=== PATIENT | male | born 1945 | race Caucasian/White ===

== ENCOUNTER 2016-12-14 11:52 | Day surgery (SDC) | payer OTHER ==
--- NOTE | 2016-12-08 15:36 | MH ---
cc: OMAR BLOCK M.D. DATE OF ADMISSION: 12/14/2016 HISTORY OF PRESENT ILLNESS The patient is a 71-year-old white male with a history of sleep apnea, chronic atrial fibrillation, severe dilated cardiomyopathy, coronary artery disease who is now admitted for AICD generator replacement. His AICD battery was found to be nearing end-of-life on a routine check. Clinically he has been doing fairly well. He has had no change in chronic moderate to severe dyspnea with minimal exertion. He denies chest pain, dizziness, syncope, near-syncope, pedal edema, paroxysmal nocturnal dyspnea. Occasionally he experiences fluttering palpitations. PAST MEDICAL HISTORY: 1. Sleep apnea 2. Chronic atrial fibrillation. 3. History of biventricular pacemaker implant with subsequent upgrade of the device to a dual-chamber AICD biventricular system 06/10/2009. 4. Moderate to severe dilated cardiomyopathy. His ejection fraction was most recently measured at 30-35% on echo 12/08/2016. 5. Coronary artery disease status post bypass surgery 04/21/2005. His last heart catheterization was November of 2010 showing moderate to severe three-vessel [place] coronary artery disease, patent bypass grafts including a left internal mammary artery to the LAD, vein graft to the second obtuse marginal, vein graft to the ramus intermedius. He also has a history of bare-metal stenting of the mid right coronary November 2006. 6. Hyperlipidemia. 7. Hypertension. 8. History of thyroid cancer status post thyroidectomy in 1983. CARDIAC MEDICATIONS AT HOME: 1. Aspirin 325 milligrams daily. 2. Avapro 150 milligrams daily. 3. Furosemide 40 milligrams twice a day. 4. Metoprolol succinate 25 milligrams daily. 5. Potassium chloride 20 milliequivalents daily. 6. Simvastatin 40 milligrams at bedtime. 7. Warfarin 6 milligrams daily. ALLERGIES: 1. TALWIN. 2. VALIUM. 3. CODEINE. FAMILY HISTORY: Family history noncontributory. SOCIAL HISTORY: The patient is a former smoker. There is no history of alcohol abuse. REVIEW OF SYSTEMS: Review of systems as in the history of present illness otherwise negative or noncontributory. PHYSICAL EXAMINATION: GENERAL: On exam his blood pressure IS 126/68 with a pulse of 60, respirations 20. GENERAL: In general, he is a well-developed, well-nourished white male in no acute distress. HEAD, EYES, EARS, NOSE, THROAT: On HEENT examination jugular venous pressure is normal. Carotid pulses are 2+ bilaterally and without bruits. CHEST: Examination of the chest reveals clear lung turner. CARDIAC: On cardiac examination, he has a regular rhythm and rate without S3, S4 or murmur. ABDOMEN: On abdominal examination he has a soft, nontender abdomen. Bowel sounds are present. There is no definite hepatosplenomegaly. EXTREMITIES: Examination of extremities reveals no clubbing, cyanosis or edema. IMPRESSION: AICD battery nearing end-of-life in a 71-year-old white male with a history of chronic atrial fibrillation, moderate to severe dilated cardiomyopathy, coronary artery disease, hyperlipidemia, hypertension. The patient has been recommended AICD generator replacement. He has also been recommended AICD defibrillation threshold testing. The nature of these procedures and potential risks have been outlined. His most recent ejection fraction was estimated at 30% to 35% on an echo 12/08/2016. The patient remains [place] [employer] functional class III chronically. PLAN: AICD generator replacement and AICD defibrillation threshold testing on 12/14/2016. ADDENDUM: The patient has expressed desire to implant only a biventricular pacemaker, and not and ICD system. His device will be changed to a biventricular pacemaker. MD SARAH Badillo/YOJANA /2:44 PM /3:33 PM [facility]
[~2016-12-14] VITALS: Ht 175.3 cm; Wt 136.0 kg
[~2016-12-14 11:52] MED LIST: ALBU6.7H INH; ASPI325T PO; DOFE250 PO; FURO1TAB93 PO; HYDR10TA16 PO; IRBE150T49 PO; KLOR20TA6 PO; LEVO.125 PO; OMEP20TA PO; SPAC1MIS6; SUCR1S PO; TOPR25TA2 PO; VITA100018 PO; WARF6 PO; ZOCO40TA PO
[2016-12-14 12:33] LABS: AUTOMATED NEUTROPHIL # 3.4 TH/MM3 (1.8-7.7); BASOPHIL % 0.7 % (0.0-2.0); EOSINOPHIL # 0.9 TH/MM3 (0-0.4); HEMATOCRIT 38.7 % (39.0-51.0); HEMO FLAGS DIFF FINAL; LYMPH % 23.8 % (9.0-44.0); LYMPHOCYTE # 1.5 TH/MM3 (1.0-4.8); MEAN CELL VOLUME 91.1 FL (80.0-100.0); MEAN CORPUSCULAR HEMOGLOBIN 30.4 PG (27.0-34.0); MEAN CORPUSCULAR HGB CONC 33.4 % (32.0-36.0); MONO % 8.7 % (0.0-8.0); NEUT % 52.8 % (16.0-70.0); PLATELET COUNT 177 TH/MM3 (150-450); RED BLOOD COUNT 4.25 MIL/MM3 (4.50-5.90); RED CELL DISTRIBUTION WIDTH 17.5 % (11.6-17.2); WHITE BLOOD COUNT 6.5 TH/MM3 (4.0-11.0)
[2016-12-14 12:41] LABS: APTT (PATIENT) 37.6 SEC (24.3-30.1); INTERNATIONAL NORMALIZED RATIO 1.5 RATIO; PROTHROMBIN TIME - PATIENT 16.5 SEC (9.8-11.6)
[2016-12-14 12:42] VITALS: BP 138/87; PULSE 88; RESP 17; TEMP 97.7; O2SAT 95
[2016-12-14] MEDS ORDERED: VANCOMYCIN 1000 MG/NS 250 ML IV SCH ×2 (12:45)
[2016-12-14] MEDS ORDERED: CHLORHEXIDINE GLUCONATE 2 % 1 PACK (2 CLOTHS) TOPICAL PRN (12:45)
[2016-12-14] MEDS ORDERED: INSULIN HUMAN REGULAR 1,000 UNITS/10 ML VIAL SQ PRN (12:45)
[2016-12-14] MEDS ORDERED: NS 1000 ML IV SCH (12:45)
[2016-12-14] MEDS ORDERED: SODIUM CHLORID 0.9% 500 ML IV PRN (12:45)
[2016-12-14] MEDS ORDERED: Hold AM Insulin & AM Hypoglycemic medications in diabetic patients PRN (12:45)
[2016-12-14] MEDS ORDERED: MUPIROCIN 2% OINT 1 APPLIC/GM SYR NASAL SCH (12:45)
[2016-12-14] MEDS ORDERED: LACTATED RINGER'S 1000 ML IV PRN (12:45)
[2016-12-14] MEDS ORDERED: ceFAZolin 2 GM PREMIX 50 ML IV SCH (12:45)
[2016-12-14] MEDS ORDERED: METOPROLOL TARTRATE 25 MG TAB PO PRN (12:45)
[2016-12-14] MEDS ORDERED: NO Heparin, Lovenox, Coumadin at least 12 hours prior to procedure. PRN (12:45)
[2016-12-14] MEDS ORDERED: CHLORHEXIDINE GLUCONATE 2 % 1 PACK (2 CLOTHS) TOPICAL SCH (12:45)
[2016-12-14 12:51] LABS: BICARBONATE 28.9 MEQ/L (21.0-32.0); POTASSIUM 3.5 MEQ/L (3.5-5.1)
[2016-12-14] MEDS ORDERED: MIDAZOLAM HCL 2 MG/2 ML VIAL ONE ×2 (13:16→15:02)
[2016-12-14] MEDS ORDERED: WARF-60 PO (13:32)
[2016-12-14] MEDS ORDERED: METO25TA6 PO (13:32)
[2016-12-14] MEDS ORDERED: FURO40TA PO (13:32)
[2016-12-14] MEDS ORDERED: LEVO125T4 PO (13:32)
[2016-12-14] MEDS ORDERED: IRBE150T49 PO (13:32)
[2016-12-14] MEDS ORDERED: ZOCO40TA PO (13:32)
[2016-12-14] MEDS ORDERED: POTA-163 PO (13:32)
[2016-12-14] MEDS ORDERED: HYDR-3516 PO (13:32)
[2016-12-14] MEDS ORDERED: OXYC30TA PO (13:32)
[2016-12-14] MEDS ORDERED: LIDOCAINE HCL 2% 50 ML VIAL ONE (14:11)
[2016-12-14] MEDS ORDERED: MIDAZOLAM HCL 2 MG/2 ML VIAL IV PUSH ONE (14:15)
--- NOTE | 2016-12-14 14:47 | CATHPROC ---
GT Channel HIS Report Study Information Study Number Admission Scheduled Start Study Start [id number] Dec 14 2016 11:52AM 12/14/2016 Dec 14 2016 1:11PM [facility] Cardiac Pacer/ICD Admit Source Facility Department Other [facility] - Liability Claims Manager Physician and Clinical Staff Initial Serjio Alfredo Blow Up Operator Ciro Kumar,RT(R) Other Anesthesia, KAPOK MACHINE OPERATOR Recorder Elena Nuñez,LAURIE Scrub Sapna Forte,RT(R) TECH2 Equipment Time Drilling And Production Superintendent Description Size Mfg Part Number Used/Scraped [address] 14:27 [id number] BLAIR, HEMOSTAT 1 GRAM Used *[id number]-1103 13:56 [employer] SUTURE, STRIP PLUS 1/2" * Used *[id number] 13:56 MEDLINE PACER ADHESIVE, MASTISOL 2/3CC 2/3CC 0523-48 Used 13:56 MEDLINE PACER GARZA, LIMB * 2530 *[id number] Used [id number] 13:56 MEDLINE PACER PACK, PACER CUSTOM * Used *[id number] 13:56 MEDLINE PACER PEN, SKIN DUAL W/ RULER * Used *[id number] 14:00 Needle Sponge Count 1 111 Used 14:00 Needle Sponge Count 2 2 Used 14:00 Needle Sponge Count 25 1 Used [id number] *[id number] SUTURE, 3-0 VICRYL [SH] ([id number]) SUTURE, 3-0 VICRYL [SH] ([id number]) SUTURE, 4-0 MONOCRYL [PS2] (Y496G) [id number] 13:56 [place] [employer],WARM AIR CCL * Used *[id number] [facility] P[facility], ELECTROSURGICAL 13:56 * [id number] *[id number] Used SURGICAL GROUNDING ORANGE [id number] 13:56 [employer] JERMAINE. ELECTRODE, PRO-PADZ BIPHASIC * Used *[id number] History: Risk Factors Family History of Hypertension Dyslipidemia Previous [place] Previous Heart Failure Premature CAD Yes Yes Yes Yes Yes Prior Valve Surgery No Cerebrovascular Peripheral Artery Chronic Lung On Dialysis Diabetes Disease Disease Disease No No No Yes Yes Labs Hgb (g/dl) Hct (%) WBC (l/cumm) Platelets (thousands) 11.60-17.00 35.00-51.00 4.00-11.00 150.00-450.00 12.9 38.7 6.5 177 Glucose (mg/dl) BUN (mg/dl) Creatinine (mg/dl) BUN:Creatinine (1:x) 74.00-106.00 7.00-18.00 0.50-1.30 10.00-20.00 111 19 1.3 14.6 Na (meq/l) K (meq/l) 136.00-145.00 3.50-5.10 143 3.5 INR (PTT:PT) 0.90-1.10 1.5 CPK-MB (ng/ML) 0.50-3.60 Not Drawn Medication Medication Total Dose (Bolus/Oral) Medication Total Dosage/Unit 2% XYLOCAINE 50 mL Medications (Bolus/Oral) Medication Time Given Dosage/Unit Administered By Reason 2% XYLOCAINE 12/14/2016 2:13:48 PM 50 mL Serjio Lemos 50 mL 2% XYLOCAINE given by Serjio Lemos in Left shoulder via Subcutaneous. Ordered by Serjio Lemos. left upper chest Initial Case Assessment Cardiovascular HR Rhythm NIBP Chest Pain 77 paced 138/87 0 Edema Present Skin color Skin None Normal Warm Dry Circulatory - Right Pulses Dorsalis Pedis 1 Scale (0,1,2,3,4,d) Circulatory - Left Pulses Dorsalis Pedis 1 Scale (0,1,2,3,4,d) Neurological State Oriented to time-place- Alert Moves all extremities person Respiration - General Respiration Rate SpO2 (%) (B/min) 22 94 Final Case Assessment Cardiovascular HR Rhythm NIBP Chest Pain 75 paced 97/57 0 Edema Present Skin color Skin None Normal Warm Dry Circulatory - Right Pulses Dorsalis Pedis 1 Scale (0,1,2,3,4,d) Circulatory - Left Pulses Dorsalis Pedis 1 Scale (0,1,2,3,4,d) Neurological State Oriented to time-place- Alert Moves all extremities person Respiration - General Respiration Rate SpO2 (%) O2 (lpm) (B/min) 18 97 4 Chronological Log Time Study Chronological Log 13:35:00 Patient arrived via Bed. 13:35:15 Patient Name, D.O.B, / Armband Verified By R.N. 13:35:50 Anesthesia at bedside. Assumes care of patient. See records for all meds and vitals during procedure 13:56:18 Patient has been NPO for More than 6Hrs. 13:56:20 Skin Breakdown- none per patient 13:56:29 Disposable Defibrillator Pads Placed On Patient. 13:56:29 Rita Prominences Protected 13:56:30 IV Warmer Connected To Patient. 13:56:31 A # 20 IV was noted in the Antecubital (left). Grade = 0 13:56:42 History and physical on the chart or being dictated. Assessment: Initial Case, HR=77 BPM, Rhythm=paced, XNMK=031/87 mmhg, Chest Pain=0, Edema=None, Color=Normal, Skin = Warm, Dry Right Pulses: Jean Pierre Ped=1 13:56:43 Left Pulses: Jean Pierre Ped=1 Neurological: State=Alert, Ox3, GUEVARA Respiration: Resp=22 B/min, SpO2=94 % 13:59:10 Table restraints applied according to hospital policy 13:59:12 Left Upper Chest Prepped Times Two. 13:59:23 2% CHLORHEXIDINE GLUCONATE WASH AND NASAL SWIPE DONE PRIOR TO PROCEDURE. 13:59:29 Bovie ground pad applied to: right thigh First Sponge And Instrument Count Done by Elena Nuñez, LAURIE. 13:59:34 Hypo's: 2, Sponges: 25, Bovie/scratch: 1 Sutures: 4, Blades: 2, Instruments: 26, Syveck Patches: 0 Time Out. Correct patient, procedure, procedure equipment, site and side verified with physicia n present. Time 14:11:45 concurred by MD, individual staff and KAPOK MACHINE OPERATOR. Time Out #2 - Consents verified, patient in correct position, all results are labled and displa yed, safety precautions 14:11:55 taken, antibiotics administered. Time out concurred by MD, individual staff and KAPOK MACHINE OPERATOR in procedu re 14:12:39 Case Start 50 mL 2% XYLOCAINE given by Serjio Lemos in Left shoulder via Subcutaneous. Ordered by Rika Lemos. left upper 14:13:48 chest 14:14:07 Surgical Incision Made. 14:19:03 A pocket was created at the L Upper Chest. 14:19:08 A device was explanted. 14:20:46 The RV lead impedance and threshold being tested. 14:31:11 Pocket flushed with antibiotic solution 14:31:16 A implantable was connected and placed in the pocket. second Sponge And Instrument Count Done by Elena Nuñez RN. 14:31:29 Hypo's: 2, Sponges: 25, Bovie/scratch: 1 Sutures: 4, Blades: 2, Instruments: 26, Syveck Patches: 0 14:32:41 Implant Procedure was performed. 14:32:50 A Bivent ICD Implant . (Dual) BiV ICD down grade BiV Pacer Gen change 14:35:33 Reference ECG taken 14:42:30 The pocket was closed. 14:42:31 Case End final Sponge And Instrument Count Done by Elena Nuñez RN. 14:42:43 Hypo's: 2, Sponges: 25, Bovie/scratch: 1 Sutures: 4, Blades: 2, Instruments: 26, Syveck Patches: 0 14:43:46 Steri-strips and a sterile dressing applied to site. Assessment: Final Case, HR=75 BPM, Rhythm=paced, NIBP=97/57 mmhg, Chest Pain=0, Edema=None, Color=Normal, Skin = Warm, Dry Right Pulses: Jean Pierre Ped=1 14:43:55 Left Pulses: Jean Pierre Ped=1 Neurological: State=Alert, Ox3, GUEVARA Respiration: Resp=18 B/min, SpO2=97 %, O2=4 lpm 14:45:58 Sterile dressing applied to site 14:45:59 No case complications noted. 14:46:00 Cine recording checked. 14:46:01 Bedside Report will be given. 14:46:02 Implantable Device card placed in patient's chart. 14:46:04 docu called. Spoke to Molly 14:46:17 Defibrillator and ground pads removed. Skin intact. 14:50:19 Patient moved to [facility] End Study - Contrast Media Used In Study Contrast Total Opened (mL) Total Used (mL) Total Wasted (mL) Unspecified 0 0 0 End Study - Maximum Contrast Load Max Contrast Load (mL) 550.0 End Study - Radiation Exposure Fluoro Time (minutes) 0.1 End Study - Patient Disposition Complications Transferred To Interventional Outcome No Telemetry Bed successful
[2016-12-14] MEDS ORDERED: LEVA250T14 PO (14:50)
[2016-12-14] MEDS ORDERED: ACETAMINOPHEN 325 MG TAB PO PRN (15:00)
[2016-12-14] MEDS ORDERED: PROPOFOL 200 MG/20 ML AMP IV ONE (17:03)
--- NOTE | 2016-12-15 08:09 | EKG ---
Date Performed: 12/14/2016 Time Performed: 12:46:04 PTAGE: 71 years EKG: Ventricular paced rhythm PVC's Abnormal ECG PREVIOUS TRACING : 04/16/2015 19.32 DOCTOR: José Gutierres Interpretating Date/Time 12/15/2016 08:03:50
--- NOTE | 2016-12-16 09:48 | MP ---
cc: OMAR BLOCK M.D. DATE OF SURGERY: 12/14/2016 PROCEDURE Downgrade of a preexisting biventricular AICD system to a biventricular pacer. OPERATIVE NOTES The patient confirmed that he did not want an AICD device implanted but would like continued biventricular pacing support. Therefore it was decided to change his system to a biventricular pacemaker. The left upper chest was prepped and draped as per policy and anesthetized with 1% lidocaine. A transverse incision was made over the preexisting AICD generator using a plasma blade. Blunt dissection was used to free the generator from the subcutaneous pocket. Of note, the patient has a preexisting capped right ventricular pacer lead in the pocket. This was easily located. The cap was removed from the right ventricular pacer lead. The leads were disconnected from the AICD generator and then reconnected to a Medtronic biventricular pacemaker generator, model [id number]. The AICD ventricular lead was capped and placed back into the pocket. The leads and the generator were placed back into the pocket as well. The pocket was closed using 3-0 Vicryl interrupted stitches in 2-3 layers to close the subcutaneous tissue and then 4-0 Monocryl running stitch to close the subcuticular tissue. Overlapping Steri-Strips and a dressing were applied. There were no apparent immediate complications. The pacing parameters of the old right ventricular pacing lead were found to be excellent. CONCLUSIONS Successful downgrade of a preexisting biventricular AICD system, which was at elective replacement indicator status, to a biventricular pacing system using a Medtronic Viva pacemaker generator. MD SARAH Badillo/DAMIAN /2:50 PM /9:46 AM MIGEL
== END 2016-12-14 17:20 | disposition home or self-care (01) ==
LOC: HDOC 11:52 → HDIC 11:53 → HDOC 17:20
PROVIDERS: ATTEND Internal Medicine Cardiovascular Disease
DX: Z45.010 Encounter for checking and testing of cardiac pacemaker pulse generator [battery] (principal); I42.0 Dilated cardiomyopathy; I48.2 Chronic atrial fibrillation; R00.2 Palpitations; I25.10 Atherosclerotic heart disease of native coronary artery without angina pectoris; E78.5 Hyperlipidemia, unspecified; I10 Essential (primary) hypertension; G47.30 Sleep apnea, unspecified; Z95.1 Presence of aortocoronary bypass graft; Z85.850 Personal history of malignant neoplasm of thyroid; Z87.891 Personal history of nicotine dependence; Z79.01 Long term (current) use of anticoagulants; Z01.818 Encounter for other preprocedural examination
CPT/HCPCS: 00400; 33229; 33241; 80048; 85025; 85610; 85730; 93005; C2621; J0690; J2250; J3010; J3370; J7050

== ENCOUNTER 2017-08-24 11:10 | Emergency (ER) | payer OTHER ==
[~2017-08-24] VITALS: Ht 175.3 cm; Wt 129.0 kg
[~2017-08-24 11:10] MED LIST changes: -ALBU6.7H INH; -ASPI325T PO; -DOFE250 PO; -FURO1TAB93 PO; +FURO40TA PO; +HYDR-3516 PO; -HYDR10TA16 PO; -KLOR20TA6 PO; +LEVA250T14 PO; -LEVO.125 PO; +LEVO125T4 PO; +METO1TAB42 PO; -OMEP20TA PO; +OXYC30TA PO; +POTA-163 PO; -SPAC1MIS6; -SUCR1S PO; -TOPR25TA2 PO; -VITA100018 PO; +WARF-60 PO; -WARF6 PO
[2017-08-24 11:41] VITALS: BP 114/55; PULSE 75; RESP 16; TEMP 98.8; O2SAT 97
[2017-08-24 12:46] VITALS: BP 167/86; PULSE 84; RESP 19; O2SAT 98
[2017-08-24 13:03] LABS: AUTOMATED NEUTROPHIL # 5.1 TH/MM3 (1.8-7.7); BASOPHIL # 0.1 TH/MM3 (0-0.2); BASOPHIL % 0.8 % (0.0-2.0); EOSINOPHIL # 0.9 TH/MM3 (0-0.4); EOSINOPHIL % 10.7 % (0.0-4.0); HEMATOCRIT 33.8 % (39.0-51.0); HEMOGLOBIN 11.1 GM/DL (13.0-17.0); LYMPH % 16.9 % (9.0-44.0); LYMPHOCYTE # 1.4 TH/MM3 (1.0-4.8); MEAN CORPUSCULAR HGB CONC 32.9 % (32.0-36.0); MEAN PLATELET VOLUME 7.8 FL (7.0-11.0); MONO % 10.5 % (0.0-8.0); MONOCYTE # 0.9 TH/MM3 (0-0.9); NEUT % 61.1 % (16.0-70.0); PLATELET COUNT 263 TH/MM3 (150-450); RED BLOOD COUNT 3.84 MIL/MM3 (4.50-5.90); RED CELL DISTRIBUTION WIDTH 18.7 % (11.6-17.2); WHITE BLOOD COUNT 8.4 TH/MM3 (4.0-11.0)
--- NOTE | 2017-08-24 13:15 | PD ---
HPI Chief Complaint: GI Complaint Time Seen by Provider: 12:41 Travel History International Travel<30 days: No Contact w/Intl Traveler<30days: No Traveled to known affect area: No History of Present Illness HPI Patient is a 71 year old male who comes in complaining of painful swelling to his abdomen. He says that he has had surgery to his abdomen and has had history of hernia here that his surgeon has been watching. He says the area has always been hard, but last night he noticed a swelling to the area. He says he has been feeling chills at home, but has not had fever that he knows of. He says he has been having issues with constipation, but had a large bowel movement yesterday. He denies nausea or vomiting. He went to see his doctor today who suggested he come here for a CT scan. Severity is mild to moderate. PFSH Past Medical History Arthritis: Yes Asthma: No Atrial Fibrillation: Yes Blood Disorders: No Heart Rhythm Problems: Yes (ATRIAL FIB) Cancer: Yes (thyroid, skin) Cardiac Catheterization: Yes Cardiovascular Problems: Yes (cabg, AK, CHF) High Cholesterol: Yes Chemotherapy: No Chest Pain: Yes Congestive Heart Failure: Yes COPD: No Diabetes: No Endocrine: Yes Gastrointestinal Disorders: No GERD: Yes Glaucoma: No Genitourinary: Yes (CYST ON KIDNEY) Hepatitis: Yes (b) Hiatal Hernia: No Hypertension: No Immune Disorder: No Implanted Vascular Access Dvce: Yes Medical other: Yes (MACULAR DEGENERATION, CIRRHOSIS) Musculoskeletal: Yes Neurologic: Yes (CHARCOT MAKAYLA TOOTH) Psychiatric: No Reproductive: No Respiratory: Yes (SLEEP APNEA CPAP) Myocardial Infarction: Yes (X 5) Pancreatitis: Yes (R/T ETOH CONSUMPTION) Radiation Therapy: Yes Sleep Apnea: Yes (C PAP) Thyroid Disease: Yes Influenza Vaccination: Yes Past Surgical History Abdominal Surgery: Yes (CHOLECYSTECTOMY) AICD: Yes Body Medical Devices: pacermaker,stents Cardiac Surgery: Yes (ANGIOPLASTY, STENTS,CABG, ANYERYSM ON LAD, PACEMAKER MEDTRONIC ) Cholecystectomy: Yes Coronary Artery Bypass Graft: Yes (TIMES THREE VESS 2005) Coronary Stent: Yes (STATES TIMES THREE ) Endocrine Surgery: Yes (THYROID SX) Joint Replacement: No Pacemaker: Yes (MEDTRONICS) Thoracic Surgery: Yes Other Surgery: Yes Social History Alcohol Use: No Tobacco Use: No (STOPPED APR 2009) Substance Use: No Allergies-Medications (Allergen,Severity, Reaction): Coded Allergies: diatrizoate meglumine (Unverified Allergy, Severe, 08/24/17) diazepam (Unverified Allergy, Severe, MEAN, 08/24/17) gadobenic acid (Unverified Allergy, Severe, 08/24/17) gadodiamide (Unverified Allergy, Severe, 08/24/17) gadoteridol (Unverified Allergy, Severe, 08/24/17) iodixanol (Unverified Allergy, Severe, 08/24/17) iohexol (Unverified Allergy, Severe, 08/24/17) pentazocine (Unverified Allergy, Severe, 08/24/17) tramadol (Unverified Allergy, Severe, EAR ACHES, HEADACHES, 08/24/17) codeine (Unverified Adverse Reaction, Severe, NAUSEA, 08/24/17) Uncoded Allergies: ADHESIVE TAPE (Allergy, Severe, RASH, 11/24/10) PERFUMES (Allergy, Mild, NAUSEA, 11/24/10) Reported Meds & Prescriptions Reported Meds & Active Scripts Active Levaquin (Levofloxacin) 250 Mg Tablet 250 Mg PO DAILY 5 Days Reported Hydrocodone-Acetaminophen 5-325 mg Tab 1 Tab PO Q6H PRN Warfarin 6 Mg Tab 6 Mg PO DAILY Zocor (Simvastatin) 40 Mg Tab 40 Mg PO HS Potassium Chloride ER (Potassium Chloride) 20 Meq Tab 20 Meq PO DAILY Oxycodone (Oxycodone HCl) 30 Mg Tab 30 Mg PO DAILY Metoprolol Succinate ER 24 HR (Metoprolol Succinate) 25 Mg Tab 25 Mg PO DAILY Levothyroxine (Levothyroxine Sodium) 125 Mcg Tab 125 Mcg PO BID Furosemide 40 Mg Tab 40 Mg PO BID Avapro (Irbesartan) 150 Mg Tab 150 Mg PO DAILY Review of Systems Except as stated in HPI: all other systems reviewed are Neg General / Constitutional: Positive: Chills HENT: No: Headaches, Lightheadedness Cardiovascular: No: Chest Pain or Discomfort Respiratory: No: Shortness of Breath Gastrointestinal: Positive: Abdominal Pain, No: Nausea, Vomiting Musculoskeletal: No: Myalgias Skin: Positive Change in Pigmentation, No Rash Neurologic: No: Weakness, Dizziness Physical Exam Narrative GENERAL: Awake and alert, in no acute distress. SKIN: Focused skin assessment warm/dry. Area of erythema around his abdominal surgical scar, warm to the touch. HEAD: Atraumatic. Normocephalic. EYES: Pupils equal and round. No scleral icterus. No injection or drainage. ENT: Mucous membranes pink and moist. NECK: Trachea midline. No JVD. CARDIOVASCULAR: Regular rate and rhythm. No murmur appreciated. RESPIRATORY: No accessory muscle use. Clear to auscultation. Breath sounds equal bilaterally. GASTROINTESTINAL: Abdomen soft, non-tender, nondistended. Fluctuant area around the abdominal surgical scar. Larger indurated area around the scar, which he reports as chronic. MUSCULOSKELETAL: No obvious deformities. No clubbing. No cyanosis. No edema. NEUROLOGICAL: Awake and alert. No obvious cranial nerve deficits. Motor grossly within normal limits. Normal speech. PSYCHIATRIC: Appropriate mood and affect; insight and judgment normal. Data Data Last Documented VS Vital Signs Date Time Temp Pulse Resp B/P (MAP) Pulse Ox O2 Delivery O2 Flow Rate FiO2 08/24/17 12:46 84 19 167/86 (113) 98 Room Air 08/24/17 11:41 98.8 Orders Orders Complete Blood Count With Diff (08/24/17 11:44) Act Partial Throm Time (Ptt) (08/24/17 11:44) Prothrombin Time / Inr (Pt) (08/24/17 11:44) Lactic Acid (08/24/17 12:42) Comprehensive Metabolic Panel (08/24/17 12:42) Ct Abd/Pel W/O Iv Contrast (08/24/17 ) Potassium Chloride (Kcl) (08/24/17 13:45) Labs Laboratory Tests Test 08/24/17 11:20 08/24/17 13:00 White Blood Count 8.4 TH/MM3 Red Blood Count 3.84 MIL/MM3 Hemoglobin 11.1 GM/DL Hematocrit 33.8 % Mean Corpuscular Volume 88.0 FL Mean Corpuscular Hemoglobin 29.0 PG Mean Corpuscular Hemoglobin Concent 32.9 % Red Cell Distribution Width 18.7 % Platelet Count 263 TH/MM3 Mean Platelet Volume 7.8 FL Neutrophils (%) (Auto) 61.1 % Lymphocytes (%) (Auto) 16.9 % Monocytes (%) (Auto) 10.5 % Eosinophils (%) (Auto) 10.7 % Basophils (%) (Auto) 0.8 % Neutrophils # (Auto) 5.1 TH/MM3 Lymphocytes # (Auto) 1.4 TH/MM3 Monocytes # (Auto) 0.9 TH/MM3 Eosinophils # (Auto) 0.9 TH/MM3 Basophils # (Auto) 0.1 TH/MM3 CBC Comment DIFF FINAL Differential Comment Blood Urea Nitrogen 25 MG/DL Creatinine 1.69 MG/DL Random Glucose 99 MG/DL Total Protein 7.8 GM/DL Albumin 3.4 GM/DL Calcium Level 10.1 MG/DL Alkaline Phosphatase 140 U/L Aspartate Amino Transf (AST/SGOT) 21 U/L Alanine Aminotransferase (ALT/SGPT) 15 U/L Total Bilirubin 0.5 MG/DL Sodium Level 136 MEQ/L Potassium Level 2.9 MEQ/L Chloride Level 95 MEQ/L Carbon Dioxide Level 33.0 MEQ/L Anion Gap 8 MEQ/L Estimat Glomerular Filtration Rate 40 ML/MIN Lactic Acid Level 1.7 mmol/L MDM Medical Decision Making Medical Screen Exam Complete: Yes Emergency Medical Condition: Yes Medical Record Reviewed: Yes Differential Diagnosis Abscess versus hernia versus cellulitis versus mass Narrative Course Patient is a 71 year old male who comes in due to swelling on his abdominal wall. Exam shows an area of erythema with two small areas of fluid collection. IV established, labs sent. Labs show no acute abnormalities. Patient had his INR checked this morning and reports it was 3. CT abdomen and pelvis performed shows no definitive etiology for this mass. Last 24 hours Impressions Abdomen/Pelvis CT 08/24/17 0000 Signed Impressions: Service Date/Time: August 13:49 - CONCLUSION: 1. There is a 9.5 x 13.4 x 12.3 cm soft tissue density mass in the anterior abdominal wall. This patient has a history of previous seroma drainage and sclerosis. This could suggest hemorrhage or reaccumulation into this cavity however I cannot exclude infection or malignancy. 2. 5.2 cm cyst arising from the left kidney. 3. Degenerative changes in the spine. Daniel Woodward MD Patient offered admission, but would prefer to try to treat this as an outpatient. He will be discharged with prescriptions for Keflex. He has already spoken with Dr. Santos who is going to set up an appointment for him with Dr. Golden for further evaluation. He is advised to return at any time for any worsening symptoms. Diagnosis Primary Impression: Abdominal mass Qualified Codes: R19.09 - Other intra-abdominal and pelvic swelling, mass and lump Additional Impression: Abdominal wall cellulitis Patient Instructions: Cellulitis (ED), General Instructions Additional Instructions: Follow-up with your doctors for further categorization of what this mass is. Take all of your antibiotics. Return to the ED at anytime for any worsening symptoms. Scripts Cephalexin (Keflex) 500 Mg Cap 500 MG PO Q6H for Infection for 7 Days, #28 CAP 0 Refills Prov: Cyndi Munoz MD 08/24/17 Disposition: 01 DISCHARGE HOME Condition: Stable Cyndi Munoz MD Aug 24, 2017 13:15
[2017-08-24 13:24] LABS: ALBUMIN 3.4 GM/DL (3.4-5.0); ALKALINE PHOSPHATASE 140 U/L (45-117); ALT (GPT) 15 U/L (12-78); AST (GOT) 21 U/L (15-37); BLOOD UREA NITROGEN 25 MG/DL (7-18); CALCIUM 10.1 MG/DL (8.5-10.1); CHLORIDE 95 MEQ/L (98-107); CREATININE 1.69 MG/DL (0.60-1.30); GLOMERULAR FILTRATION RATE 40 ML/MIN (>89); GLUCOSE,RANDOM 99 MG/DL (74-106); SODIUM (NA) 136 MEQ/L (136-145); TOTAL BILIRUBIN ADULT 0.5 MG/DL (0.2-1.0); TOTAL PROTEIN 7.8 GM/DL (6.4-8.2)
[2017-08-24] MEDS ORDERED: POTASSIUM CHLORIDE 10 MEQ CONTROLLED RELEASE TAB PO ONE (13:45)
--- NOTE | 2017-08-24 14:11 | RADRPT ---
EXAM DATE/TIME: 08/24/2017 13:49 [place] COMPARISON: No previous studies available for comparison. INDICATIONS : Diffuse abdomen pain with hard warm spots in lower abdomen region. ORAL CONTRAST: No oral contrast ingested. RADIATION DOSE: 24.12 CTDIvol (mGy) MEDICAL HISTORY : Cardiovascular disease. Pancreatitis. Cirrhosis.Hep B, Thyroid and Skin cancer SURGICAL HISTORY : Cholecystectomy. Pacemaker.Hernia repair ENCOUNTER: Initial ACUITY: 2 days PAIN SCALE: 6/10 LOCATION: Bilateral lower quadrant TECHNIQUE: Volumetric scanning of the abdomen and pelvis was performed. Using automated exposure control and ad justment of the mA and/or kV according to patient size, radiation dose was kept as low as reasonably achievable to obtain optimal diagnostic quality images. DICOM format image data is available electro nically for review and comparison. FINDINGS: The limited portion of the lung base visualized is clear. The appearance of the liver, spleen, pancreas, adrenal glands right kidney is within normal limits by noncontrast imaging. Note is made of a 5.2 cm simple cyst arising from the left kidney. There is no free intraperitoneal air. There is no free peritoneal fluid. There is no retroperitoneal adenopathy. There is diffuse atherosclerotic plaquing throughout the abdominal aorta. There is no free fluid within the pelvis. No iliac or inguinal adenopathy is present. The loops of sm all large bowel within the pelvis are unremarkable. There are advanced degenerative changes throughout the lumbar spine. Imaging through the anterior abdomen demonstrates a 9.5 x 13.4 x 12.3 cm soft tissue density mass. Ba sed on previous imaging from 2010 this patient has a history of an anterior abdominal fluid collectio n which was sclerosed however, I do not have those images available for direct comparison. Primary co nsideration for this would be reaccumulation of the fluid collection however, I cannot exclude absces s or even malignancy as this is soft tissue density. CONCLUSION: 1. There is a 9.5 x 13.4 x 12.3 cm soft tissue density mass in the anterior abdominal wall. This nick ent has a history of previous seroma drainage and sclerosis. This could suggest hemorrhage or reaccum ulation into this cavity however I cannot exclude infection or malignancy. 2. 5.2 cm cyst arising from the left kidney. 3. Degenerative changes in the spine. Daniel Woodward MD on August 24, 2017 at 14:02 Board Certified Radiologist. This report was verified electronically.
[2017-08-24] MEDS ORDERED: CEPH-460 PO (14:45)
[2017-08-24 15:11] VITALS: BP 137/63
== END 2017-08-24 15:08 | disposition home or self-care (01) ==
LOC: NEPE 11:10
DX: R19.00 Intra-abdominal and pelvic swelling, mass and lump, unspecified site (principal); L03.311 Cellulitis of abdominal wall; N28.1 Cyst of kidney, acquired; M19.90 Unspecified osteoarthritis, unspecified site; I48.91 Unspecified atrial fibrillation; I50.9 Heart failure, unspecified; E78.00 Pure hypercholesterolemia, unspecified; K74.60 Unspecified cirrhosis of liver; Z87.19 Personal history of other diseases of the digestive system
CPT/HCPCS: 74176; 80053; 83605; 85025

== ENCOUNTER 2017-08-28 14:26 | Inpatient (IN) | payer OTHER, MEDICARE ==
[~2017-08-28] VITALS: Ht 175.3 cm; Wt 140.9 kg
[~2017-08-28 14:26] MED LIST changes: +CEPH-460 PO
[2017-08-28 14:31] VITALS: BP 127/67; PULSE 78; RESP 18; TEMP 98.7; O2SAT 97
[2017-08-28 15:38] LABS: AUTOMATED NEUTROPHIL # 4.8 TH/MM3 (1.8-7.7); BASOPHIL % 0.5 % (0.0-2.0); EOSINOPHIL # 0.8 TH/MM3 (0-0.4); EOSINOPHIL % 10.3 % (0.0-4.0); HEMATOCRIT 33.4 % (39.0-51.0); HEMOGLOBIN 10.7 GM/DL (13.0-17.0); LYMPH % 16.2 % (9.0-44.0); LYMPHOCYTE # 1.2 TH/MM3 (1.0-4.8); MEAN CELL VOLUME 87.2 FL (80.0-100.0); MEAN CORPUSCULAR HEMOGLOBIN 27.8 PG (27.0-34.0); MEAN CORPUSCULAR HGB CONC 31.9 % (32.0-36.0); MEAN PLATELET VOLUME 7.7 FL (7.0-11.0); MONOCYTE # 0.5 TH/MM3 (0-0.9); PLATELET COUNT 259 TH/MM3 (150-450); RED BLOOD COUNT 3.83 MIL/MM3 (4.50-5.90); RED CELL DISTRIBUTION WIDTH 17.2 % (11.6-17.2); WHITE BLOOD COUNT 7.3 TH/MM3 (4.0-11.0)
[2017-08-28 15:51] LABS: CHLORIDE 93 MEQ/L (98-107); SODIUM (NA) 134 MEQ/L (136-145)
[2017-08-28 15:54] LABS: INTERNATIONAL NORMALIZED RATIO 2.7 RATIO; PROTHROMBIN TIME - PATIENT 27.2 SEC (9.8-11.6)
[2017-08-28 16:45] VITALS: BP 120/60; PULSE 75; RESP 18; O2SAT 97
[2017-08-28] MEDS ORDERED: POTASSIUM CHLORIDE 20 MEQ CONTROLLED RELEASE TAB PO ONE (17:00)
[2017-08-28 17:01] LABS: ALBUMIN 3.2 GM/DL (3.4-5.0); ALKALINE PHOSPHATASE 139 U/L (45-117); ALT (GPT) 13 U/L (12-78); AST (GOT) 19 U/L (15-37); BICARBONATE 31.9 MEQ/L (21.0-32.0); BLOOD UREA NITROGEN 31 MG/DL (7-18); GLOMERULAR FILTRATION RATE 37 ML/MIN (>89); GLUCOSE,RANDOM 136 MG/DL (74-106); TOTAL BILIRUBIN ADULT 0.5 MG/DL (0.2-1.0); TOTAL PROTEIN 7.9 GM/DL (6.4-8.2)
--- NOTE | 2017-08-28 17:04 | PD ---
HPI Chief Complaint: Bleeding Time Seen by Provider: 14:39 Travel History International Travel<30 days: No Contact w/Intl Traveler<30days: No Traveled to known affect area: No History of Present Illness HPI This is a 71-year-old male who presents to the ER complaining of bleeding wound on his abdomen. Patient has history of uterine wall abdominal mass that he was here before on August [address] scan of the abdomen that showed mass in the anterior abdominal wall but patient decided to go home at that time. Patient is back today complaining of bleeding from that mass that does not stop by simply applying pressure. Patient is on warfarin, unsure of what dosage but he states he think it 6 mg. Patient denies any trauma to the abdomen, good bowel movement with no diarrhea, no nausea or vomiting no fever or chills or night sweats. In 2010 patient had a seroma that was surgically drained using a CT- guided catheter placement. Patient denies bleeding anywhere else no nosebleed or black stool or blood in urine. PFSH Past Medical History Arthritis: Yes Asthma: No Atrial Fibrillation: Yes Blood Disorders: No Heart Rhythm Problems: Yes (ATRIAL FIB) Cancer: Yes (thyroid, skin) Cardiac Catheterization: Yes Cardiovascular Problems: Yes (cabg, [place], CHF) High Cholesterol: Yes Chemotherapy: No Chest Pain: Yes Congestive Heart Failure: Yes COPD: No Diabetes: No Endocrine: Yes Gastrointestinal Disorders: No GERD: Yes Glaucoma: No Genitourinary: Yes (CYST ON KIDNEY) Hepatitis: Yes (b) Hiatal Hernia: No Hypertension: No Immune Disorder: No Implanted Vascular Access Dvce: Yes Medical other: Yes (MACULAR DEGENERATION, CIRRHOSIS) Musculoskeletal: Yes Neurologic: Yes (CHARCOT MAKAYLA TOOTH) Psychiatric: No Reproductive: No Respiratory: Yes (SLEEP APNEA CPAP) Myocardial Infarction: Yes (X 5) Pancreatitis: Yes (R/T ETOH CONSUMPTION) Radiation Therapy: Yes Sleep Apnea: Yes (C PAP) Thyroid Disease: Yes Tetanus Vaccination: < 5 Years Influenza Vaccination: Yes Past Surgical History Abdominal Surgery: Yes (CHOLECYSTECTOMY, hernia w/ mesh) AICD: Yes Body Medical Devices: pacermaker,stents Cardiac Surgery: Yes (ANGIOPLASTY, STENTS,CABG, ANYERYSM ON LAD, PACEMAKER MEDTRONIC ) Cholecystectomy: Yes Coronary Artery Bypass Graft: Yes (TIMES THREE VESS 2005) Coronary Stent: Yes (STATES TIMES THREE ) Endocrine Surgery: Yes (THYROID SX) Joint Replacement: No Pacemaker: Yes (MEDTRONICS) Thoracic Surgery: Yes Other Surgery: Yes Social History Alcohol Use: No Tobacco Use: No Substance Use: No Allergies-Medications (Allergen,Severity, Reaction): Coded Allergies: diatrizoate meglumine (Unverified Allergy, Severe, 08/28/17) diazepam (Unverified Allergy, Severe, MEAN, 08/28/17) gadobenic acid (Unverified Allergy, Severe, 08/28/17) gadodiamide (Unverified Allergy, Severe, 08/28/17) gadoteridol (Unverified Allergy, Severe, 08/28/17) iodixanol (Unverified Allergy, Severe, 08/28/17) iohexol (Unverified Allergy, Severe, 08/28/17) pentazocine (Unverified Allergy, Severe, 08/28/17) tramadol (Unverified Allergy, Severe, EAR ACHES, HEADACHES, 08/28/17) codeine (Unverified Adverse Reaction, Severe, NAUSEA, 08/28/17) Uncoded Allergies: ADHESIVE TAPE (Allergy, Severe, RASH, 11/24/10) PERFUMES (Allergy, Mild, NAUSEA, 11/24/10) Reported Meds & Prescriptions Reported Meds & Active Scripts Active Keflex (Cephalexin) 500 Mg Cap 500 Mg PO Q6H 7 Days Levaquin (Levofloxacin) 250 Mg Tablet 250 Mg PO DAILY 5 Days Reported Hydrocodone-Acetaminophen 5-325 mg Tab 1 Tab PO Q6H PRN Warfarin 6 Mg Tab 6 Mg PO DAILY Zocor (Simvastatin) 40 Mg Tab 40 Mg PO HS Potassium Chloride ER (Potassium Chloride) 20 Meq Tab 20 Meq PO BID Oxycodone (Oxycodone HCl) 30 Mg Tab 30 Mg PO DAILY PRN Metoprolol Succinate ER 24 HR (Metoprolol Succinate) 25 Mg Tab 25 Mg PO DAILY Levothyroxine (Levothyroxine Sodium) 125 Mcg Tab 125 Mcg PO BID Furosemide 40 Mg Tab 40 Mg PO BID Avapro (Irbesartan) 150 Mg Tab 150 Mg PO DAILY Review of Systems Except as stated in HPI: all other systems reviewed are Neg Physical Exam Narrative GENERAL: Alert oriented 3 no acute distress SKIN: Focused skin assessment warm/dry. HEAD: Atraumatic. Normocephalic. EYES: Pupils equal and round. No scleral icterus. No injection or drainage. ENT: No nasal bleeding or discharge. Mucous membranes pink and moist. NECK: Trachea midline. No JVD. CARDIOVASCULAR: Regular rate and rhythm. No murmur appreciated. RESPIRATORY: No accessory muscle use. Clear to auscultation. Breath sounds equal bilaterally. GASTROINTESTINAL: Erythematous movable mass in the anterior abdominal wall right above the umbilicus with a spontaneous wound/bleeding. Surrounding erythema, not warm to touch, nonpulsating. abdomen is distended but soft and nontender. MUSCULOSKELETAL: No obvious deformities. No clubbing. No cyanosis. No edema. NEUROLOGICAL: Awake and alert. No obvious cranial nerve deficits. Motor grossly within normal limits. Normal speech. PSYCHIATRIC: Appropriate mood and affect; insight and judgment normal. Data Data Last Documented VS Vital Signs Date Time Temp Pulse Resp B/P (MAP) Pulse Ox O2 Delivery O2 Flow Rate FiO2 08/28/17 16:45 75 18 120/60 (80) 97 Room Air 08/28/17 14:31 98.7 Orders Orders Act Partial Throm Time (Ptt) (08/28/17 15:04) Complete Blood Count With Diff (08/28/17 15:04) Comprehensive Metabolic Panel (08/28/17 15:04) Prothrombin Time / Inr (Pt) (08/28/17 15:04) Urinalysis - C+S If Indicated (08/28/17 15:04) Potassium Chlor 20 Meq Premix (Kcl 20 Me (08/28/17 17:00) Potassium Chloride (Kcl) (08/28/17 17:00) Admit Order (Ed Use Only) (08/28/17 17:11) Labs Laboratory Tests Test 08/28/17 15:10 White Blood Count 7.3 TH/MM3 Red Blood Count 3.83 MIL/MM3 Hemoglobin 10.7 GM/DL Hematocrit 33.4 % Mean Corpuscular Volume 87.2 FL Mean Corpuscular Hemoglobin 27.8 PG Mean Corpuscular Hemoglobin Concent 31.9 % Red Cell Distribution Width 17.2 % Platelet Count 259 TH/MM3 Mean Platelet Volume 7.7 FL Neutrophils (%) (Auto) 66.0 % Lymphocytes (%) (Auto) 16.2 % Monocytes (%) (Auto) 7.0 % Eosinophils (%) (Auto) 10.3 % Basophils (%) (Auto) 0.5 % Neutrophils # (Auto) 4.8 TH/MM3 Lymphocytes # (Auto) 1.2 TH/MM3 Monocytes # (Auto) 0.5 TH/MM3 Eosinophils # (Auto) 0.8 TH/MM3 Basophils # (Auto) 0.0 TH/MM3 CBC Comment DIFF FINAL Differential Comment Prothrombin Time 27.2 SEC Prothromb Time International Ratio 2.7 RATIO Activated Partial Thromboplast Time 47.4 SEC Blood Urea Nitrogen 31 MG/DL Creatinine 1.80 MG/DL Random Glucose 136 MG/DL Total Protein 7.9 GM/DL Albumin 3.2 GM/DL Calcium Level 10.0 MG/DL Alkaline Phosphatase 139 U/L Aspartate Amino Transf (AST/SGOT) 19 U/L Alanine Aminotransferase (ALT/SGPT) 13 U/L Total Bilirubin 0.5 MG/DL Sodium Level 134 MEQ/L Potassium Level 2.7 MEQ/L Chloride Level 93 MEQ/L Carbon Dioxide Level 31.9 MEQ/L Anion Gap 9 MEQ/L Estimat Glomerular Filtration Rate 37 ML/MIN MDM Medical Decision Making Medical Screen Exam Complete: Yes Emergency Medical Condition: Yes Differential Diagnosis Abscess, seroma, hernia. Narrative Course This is a 71-year-old male presents to the ER complaining of bleeding from anterior abdominal wall mass. Patient was here on the eighth and CT scan of the abdomen shows the mass in the anterior abdominal wall but he decided to go home and deal with it as an outpatient and patient was given the phone number of Dr. Golden. Patient is back today complaining of bleeding from the anterior abdominal wall that spontaneously started without any trauma to the N. Patient is on Coumadin and is unsure of what dosage although he says it could be 6 mg daily his INR is therapeutic but I am still concerned about the spontaneous bleeding from the wound hemoglobin is stable but I believe this patient will benefit from admission for patient has hypokalemia. I believe the patient will benefit from inpatient admission for potassium management and management of the spontaneous bleeding from the abdominal wall. I spoke with surgical team and the recommend to medically stabilize the patient prior to pursuing any surgical options and they will be on consult to evaluate if the patient can be surgically managed. Diagnosis Primary Impression: Hypokalemia Additional Impression: Abdominal wall mass Admitting Information Admitting Physician Requests: Admit Condition: Stable Keenan Bonilla MD Aug 28, 2017 17:04
[2017-08-28] MEDS: POTASSIUM CHLOR 20 MEQ PREMIX 100 ML IV SCH ×2 (17:17→22:59)
[2017-08-28 17:19] LABS: BILIRUBIN, URINE NEG (NEG); BLOOD, URINE NEG (NEG); GLUCOSE,URINE NEG (NEG); KETONE, URINE NEG (NEG); NITRITE,URINE NEG (NEG); URINE COLOR YELLOW (YELLW/STRAW); URINE LEUKOCYTE ESTERASE NEG (NEG)
[2017-08-28] MEDS: SODIUM CHLOR 0.9% 1000 ML INJ 1,000 ML IV SCH ×2 (17:25→22:59)
[2017-08-28] MEDS ORDERED: SODIUM CHLORIDE 0.9% FLUSH 10 ML FLUSH IV FLUSH PRN (17:30)
[2017-08-28] MEDS ORDERED: ONDANSETRON HCL 4 MG/2 ML VIAL IVP PRN (17:30)
[2017-08-28] MEDS ORDERED: NALOXONE HCL 0.4 MG/ML AMP IV PUSH PRN (17:30)
[2017-08-28] MEDS ORDERED: MAGNESIUM HYDROXIDE SUSP 30 ML CUP PO PRN (17:30)
[2017-08-28 17:32] LABS: SQUAMOUS EPITHELIAL CELL URINE 0-5 /hpf (0-5)
--- NOTE | 2017-08-28 18:04 | PD.CONS ---
cc: Alvaro Golden MD [facility] Service General Surgery Consult Requested By Dr. Bonilla Reason for Consult Bleeding abdominal mass Primary Care Physician Heidi Santos MD History of Present Illness This is a 71 year old male with a past medical history of asthma, atrial fibrillation on Coumadin, cardiac stents, dyslipidemia, CHF, GERD, sleep apnea and thyroid cancer. The patient reports that he has unintentionally lost weight over the past 6-8 months. Over this time, he has noticed a large palpable area at his umbilicus that he started noticing as the weight continued to come off. On August 24, he came to the ED with complaints of swelling at the site of the abdominal mass. At that time, a CT abdomen/pelvis was obtained which showed a 9.5 x 13.4 x 12.3 cm soft tissue density. The patient was sent home with a prescription for Keflex and instructed to follow up with Dr. Golden in the office. This morning the patient awoke with blood stained sheets and tshirt. He reported a "slow ooze" from the center of the palpable mass. At 1030 he visualized "shooting blood" from the mass. He called Dr. Golden's office who instructed him to come to the ED. On arrival, a pressure dressing was applied. He has a normal WBC; Hmg 10.7; Ptl 259; INR of 2.7. The patient does take Coumadin 6 mg daily but has not taken this since Monday. The patient is hypokalemic and replacement has been initiated. Of note, the patient does have a history of a ventral hernia repair with mesh by Dr. Golden in 2010 which postoperatively required several office visits for management of a recurrent seroma. Last visit to the surgeon was September 2010, with follow up as needed. The patient has not been seen or called since then. A General Surgery consultation has been requested. Review of Systems Constitutional: COMPLAINS OF: Fatigue, Weight loss, Change in appetite Endocrine: DENIES: Polydipsia, Polyuria, Polyphagia Eyes: DENIES: Diplopia, Eye inflammation Ears, nose, mouth, throat: DENIES: Tinnitus, Hearing loss Respiratory: DENIES: Apneas Cardiovascular: DENIES: Chest pain Gastrointestinal: COMPLAINS OF: Abdominal pain, Nausea, DENIES: Diarrhea, Vomiting Genitourinary: DENIES: Urinary frequency Musculoskeletal: DENIES: Joint pain Integumentary: COMPLAINS OF: Abnormal pigmentation (abdomen with redness ) Hematologic/lymphatic: DENIES: Bruising Immunologic/allergic: DENIES: Eczema Neurologic: DENIES: Abnormal gait, Headache Psychiatric: DENIES: Confusion, Mood changes Past Family Social History Past Medical History Asthma CHF Atrial fibrillation on Coumadin GERD Thyroid cancer Sleep apnea with BiPAP Past Surgical History Ventral hernia repair in 2010 with aspiration multiple times of seroma post operative Cardiac stents CABG x 3 Pacemaker Open cholecystectomy Cardiac catheterization Reported Medications COUMADIN Simvastatin Metoprolol Potassium Furosemide Levothyroxine Allergies: Coded Allergies: diatrizoate meglumine (Unverified Allergy, Severe, 08/28/17) diazepam (Unverified Allergy, Severe, MEAN, 08/28/17) gadobenic acid (Unverified Allergy, Severe, 08/28/17) gadodiamide (Unverified Allergy, Severe, 08/28/17) gadoteridol (Unverified Allergy, Severe, 08/28/17) iodixanol (Unverified Allergy, Severe, 08/28/17) iohexol (Unverified Allergy, Severe, 08/28/17) pentazocine (Unverified Allergy, Severe, 08/28/17) tramadol (Unverified Allergy, Severe, EAR ACHES, HEADACHES, 08/28/17) codeine (Unverified Adverse Reaction, Severe, NAUSEA, 08/28/17) Uncoded Allergies: ADHESIVE TAPE (Allergy, Severe, RASH, 11/24/10) PERFUMES (Allergy, Mild, NAUSEA, 11/24/10) Active Ordered Medications Current Medications Medications (Trade) Dose Ordered Sig/Lan Route Start Time Stop Time Status Last Admin Potassium Chloride 100 ml @ 50 mls/hr Q2H IV 08/28/17 17:00 08/28/17 20:59 08/28/17 17:17 Sodium Chloride 1,000 ml @ 100 mls/hr Q10H IV 08/28/17 17:25 (NS Flush) 2 ml UNSCH PRN IV FLUSH 08/28/17 17:30 (NS Flush) 2 ml BID IV FLUSH 08/28/17 21:00 (Zofran Inj) 4 mg Q6H PRN IVP 08/28/17 17:30 ([place] 5-325 Mg) 1 tab Q4H PRN PO 08/28/17 17:30 ([place] 10-325 Mg) 1 tab Q4H PRN PO 08/28/17 17:30 (Narcan Inj) 0.4 mg UNSCH PRN IV PUSH 08/28/17 17:30 (Milk Of Solo San) 30 ml Q12H PRN PO 08/28/17 17:30 Family History Mother of colon cancer Social History Denies tobacco use Denies ETOH use Denies illicit drug use Physical Exam Vital Signs Vital Signs Date Time Temp Pulse Resp B/P (MAP) Pulse Ox O2 Delivery O2 Flow Rate FiO2 08/28/17 16:45 75 18 120/60 (80) 97 Room Air 08/28/17 14:31 98.7 78 18 127/67 (87) 97 Physical Exam GENERAL: Very pleasant 71 year old male resting in bed in no acute distress. SKIN: Superficial abrasion on LEFT elbow otherwise negative exam. HEAD: Atraumatic. Normocephalic. EYES: Pupils equal and round. No scleral icterus. No injection or drainage. ENT: No nasal bleeding or discharge. Mucous membranes pink and moist. NECK: Trachea midline. CARDIOVASCULAR: Regular rate and rhythm. RESPIRATORY: No accessory muscle use. Clear to auscultation. Breath sounds equal bilaterally. GASTROINTESTINAL: Abdomen soft; obese; midline incision with large palpable area at umbilicus---- pressure dressing removed and dark blood from open area when pressure dressing removed; area is red; mass is tender to palpation. Well healed RUQ incision. MUSCULOSKELETAL: Extremities without clubbing, cyanosis, or edema. No obvious deformities. NEUROLOGICAL: Awake and alert. No obvious cranial nerve deficits. Motor grossly within normal limits. Five out of 5 muscle strength in the arms and legs. Normal speech. PSYCHIATRIC: Appropriate mood and affect; insight and judgment normal. Laboratory Laboratory Tests Test 08/28/17 15:10 08/28/17 17:01 White Blood Count 7.3 Red Blood Count 3.83 Hemoglobin 10.7 Hematocrit 33.4 Mean Corpuscular Volume 87.2 Mean Corpuscular Hemoglobin 27.8 Mean Corpuscular Hemoglobin Concent 31.9 Red Cell Distribution Width 17.2 Platelet Count 259 Mean Platelet Volume 7.7 Neutrophils (%) (Auto) 66.0 Lymphocytes (%) (Auto) 16.2 Monocytes (%) (Auto) 7.0 Eosinophils (%) (Auto) 10.3 Basophils (%) (Auto) 0.5 Neutrophils # (Auto) 4.8 Lymphocytes # (Auto) 1.2 Monocytes # (Auto) 0.5 Eosinophils # (Auto) 0.8 Basophils # (Auto) 0.0 CBC Comment DIFF FINAL Differential Comment Prothrombin Time 27.2 Prothromb Time International Ratio 2.7 Activated Partial Thromboplast Time 47.4 Blood Urea Nitrogen 31 Creatinine 1.80 Random Glucose 136 Total Protein 7.9 Albumin 3.2 Calcium Level 10.0 Alkaline Phosphatase 139 Aspartate Amino Transf (AST/SGOT) 19 Alanine Aminotransferase (ALT/SGPT) 13 Total Bilirubin 0.5 Sodium Level 134 Potassium Level 2.7 Chloride Level 93 Carbon Dioxide Level 31.9 Anion Gap 9 Estimat Glomerular Filtration Rate 37 Urine Color YELLOW Urine Turbidity CLEAR Urine pH 7.0 Urine Specific [place] 1.010 Urine Protein NEG Urine Glucose (UA) NEG Urine Ketones NEG Urine Occult Blood NEG Urine Nitrite NEG Urine Bilirubin NEG Urine Urobilinogen 1.0 Urine Leukocyte Esterase NEG Urine Squamous Epithelial Cells 0-5 Microscopic Urinalysis Comment CULT NOT INDICATED Result Diagram: 08/28/17 1510 08/28/17 1510 Assessment and Plan Assessment and Plan 71 year old male with multiple chronic medical conditions; large palpable mass -Plan for US guided biopsy if INR come down -May need to move to the [facility] if not able to obtain the biopsy in [place] -Will give 10 mg Vitamin K subq tonight and recheck labs in AM -Replace K and recheck -Ancef -IVF -There is a concern for hematoma vs fluid collection vs sarcoma and at this point the best step is to obtain an tissue biopsy -If patient does require surgical intervention will obtain Cardiac clearance from Dr. Lemos -Thank you for this consult; We will continue to follow Attending Note - Dr. Golden Pt seen and examined; reviewed films with radiology 12 x 18 cm firm, nonmobile, minimally tender mass mid abdomen Multiple medical problems He likely has an old hematoma; possibly but not likely infected Doubt neoplasm; not fluid by CT density Will gradually reverse anticoagulation; correct K+ Discussed with Dr. Scott, hospitalist,and the patient The exam, history, and the medical decision-making described in the above note were completed with the assistance of the mid-level provider. I reviewed and agree with the findings presented. I attest that I had a [id number] encounter with the patient on the same day, and personally performed and documented my assessment and findings in the medical record. Discussed Condition With Dina Roy Dr./[employer] Aug 28, 2017 18:04 Alvaro Golden MD Aug 29, 2017 19:34
[2017-08-28] MEDS ORDERED: PHYTONADIONE 10 MG/ML VIAL SQ ONE (18:30)
[2017-08-28 18:40] VITALS: BP 142/67; PULSE 76; RESP 18; TEMP 97.2; O2SAT 96
--- NOTE | 2017-08-28 18:44 | HHI.HP ---
[facility] Service [facility] Primary Care Physician Heidi Santos MD Admission Diagnosis HYPOKALEMIA, BLEEDING ABDOMINAL MASS Diagnoses: Travel History International Travel<30 Days: No Contact w/Intl Traveler <30 Da: No Traveled to Known Affected Are: No History of Present Illness Mr. Brown is a 71-year-old male. At baseline he has atrial fibrillation and is on Coumadin for this. He has had stents in the past with stents are placed greater than 1 year ago. In 2010 he had a hernia surgery and had an associated seroma. He says in the past 6 months he has had a gradual increase in the size of his anterior abdominal seroma. Recently this has started using blood. He says in the past 24 hours he has had clots coming out and that he had a squirting of blood happening at the site. Moderate anemia is present. There is tenderness infection may also be present. He stopped his Coumadin 2 days ago. Coumadin level is still elevated at 2.7. No other complaints. No complaints of fever. Of note he does have a history of 3 cardiac arrests with anesthesia for gallbladder surgery 1970s, thyroid surgery in , and ablation more recently. His potassium level is 2.7, replacements have been initiated in the ER. No other complaints from this patient. Review of Systems Constitutional: DENIES: Fatigue, Fever, Chills, Night Sweats Eyes: DENIES: Blurred vision, Diplopia, Eye inflammation, Eye pain Respiratory: DENIES: Cough, Wheezing, Shortness of breath Cardiovascular: DENIES: Chest pain, Palpitations, Syncope, Dyspnea on Exertion Gastrointestinal: DENIES: Abdominal pain, Black stools, Bloody stools, Constipation Musculoskeletal: DENIES: Joint pain, Muscle aches, Stiffness, Joint Swelling Integumentary: COMPLAINS OF: Rash, DENIES: Abnormal pigmentation, Nail changes , Pruritus Hematologic/lymphatic: DENIES: Bruising, Lymphadenopathy Immunologic/allergic: DENIES: Eczema, Urticaria Neurologic: DENIES: Abnormal gait, Headache, Paresthesias Psychiatric: DENIES: Anxiety, Confusion, Hallucinations Past Family Social History Past Medical History Osteoarthritis Tbdkcff-Ucrno-Wwets disease Atrial fibrillation History of skin cancer History of thyroid cancer History of radiation therapy Coronary artery disease Old myocardial infarction x 5 Congestive heart failure Hyperlipidemia Gastroesophageal reflux disease Sleep apnea Renal cyst Hepatitis B Macular degeneration Cirrhosis History of pancreatitis DM2 Past Surgical History Cholecystectomy Anterior abdominal wall Hernia with mesh repair AICD placement Coronary stents CABG Thyroid cancer removal Reported Medications Reported Meds & Active Scripts Active Keflex (Cephalexin) 500 Mg Cap 500 Mg PO Q6H 7 Days Levaquin (Levofloxacin) 250 Mg Tablet 250 Mg PO DAILY 5 Days Reported Hydrocodone-Acetaminophen 5-325 mg Tab 1 Tab PO Q6H PRN Warfarin 6 Mg Tab 6 Mg PO DAILY Zocor (Simvastatin) 40 Mg Tab 40 Mg PO HS Potassium Chloride ER (Potassium Chloride) 20 Meq Tab 20 Meq PO BID Oxycodone (Oxycodone HCl) 30 Mg Tab 30 Mg PO DAILY PRN Metoprolol Succinate ER 24 HR (Metoprolol Succinate) 25 Mg Tab 25 Mg PO DAILY Levothyroxine (Levothyroxine Sodium) 125 Mcg Tab 125 Mcg PO BID Furosemide 40 Mg Tab 40 Mg PO BID Avapro (Irbesartan) 150 Mg Tab 150 Mg PO DAILY Allergies: Coded Allergies: diatrizoate meglumine (Unverified Allergy, Severe, 08/28/17) diazepam (Unverified Allergy, Severe, MEAN, 08/28/17) gadobenic acid (Unverified Allergy, Severe, 08/28/17) gadodiamide (Unverified Allergy, Severe, 08/28/17) gadoteridol (Unverified Allergy, Severe, 08/28/17) iodixanol (Unverified Allergy, Severe, 08/28/17) iohexol (Unverified Allergy, Severe, 08/28/17) pentazocine (Unverified Allergy, Severe, 08/28/17) tramadol (Unverified Allergy, Severe, EAR ACHES, HEADACHES, 08/28/17) codeine (Unverified Adverse Reaction, Severe, NAUSEA, 08/28/17) Uncoded Allergies: ADHESIVE TAPE (Allergy, Severe, RASH, 11/24/10) PERFUMES (Allergy, Mild, NAUSEA, 11/24/10) Active Ordered Medications Administered Medications Medications (Trade) Dose Ordered Sig/Lan Route PRN Reason Start Time Stop Time Status Last Admin Dose Admin Potassium Chloride 100 ml @ 50 mls/hr Q2H IV 08/28/17 17:00 08/28/17 20:59 08/28/17 17:17 Family History Congestive heart failure in father and most males on his father's side of family Mother had Charcot Ayse tooth disease and of sepsis from complications of this Social History No alcohol abuse No smoking No illicit drug abuse Physical Exam Vital Signs Vital Signs Date Time Temp Pulse Resp B/P (MAP) Pulse Ox O2 Delivery O2 Flow Rate FiO2 08/28/17 16:45 75 18 120/60 (80) 97 Room Air 08/28/17 14:31 98.7 78 18 127/67 (87) 97 Physical Exam GENERAL: NAD, A&Ox3 HEAD: Normocephalic. NECK: Supple, trachea midline. No lymphadenopathy. EYES: No scleral icterus. No injection or drainage. CARDIOVASCULAR: Regular rate and rhythm without murmurs, gallops, or rubs. RESPIRATORY: Breath sounds equal bilaterally. No accessory muscle use. GASTROINTESTINAL: Abdomen soft, non-tender, nondistended. MUSCULOSKELETAL: No cyanosis, or edema. Tipdabw-Alwgy-Tavju disease SKIN: Warm and dry. Anterior abdominal mass with bleeding, pressure bandage in place. NEURO: No focal neurological deficitis. Laboratory Laboratory Tests Test 08/28/17 15:10 08/28/17 17:01 White Blood Count 7.3 Red Blood Count 3.83 Hemoglobin 10.7 Hematocrit 33.4 Mean Corpuscular Volume 87.2 Mean Corpuscular Hemoglobin 27.8 Mean Corpuscular Hemoglobin Concent 31.9 Red Cell Distribution Width 17.2 Platelet Count 259 Mean Platelet Volume 7.7 Neutrophils (%) (Auto) 66.0 Lymphocytes (%) (Auto) 16.2 Monocytes (%) (Auto) 7.0 Eosinophils (%) (Auto) 10.3 Basophils (%) (Auto) 0.5 Neutrophils # (Auto) 4.8 Lymphocytes # (Auto) 1.2 Monocytes # (Auto) 0.5 Eosinophils # (Auto) 0.8 Basophils # (Auto) 0.0 CBC Comment DIFF FINAL Differential Comment Prothrombin Time 27.2 Prothromb Time International Ratio 2.7 Activated Partial Thromboplast Time 47.4 Blood Urea Nitrogen 31 Creatinine 1.80 Random Glucose 136 Total Protein 7.9 Albumin 3.2 Calcium Level 10.0 Alkaline Phosphatase 139 Aspartate Amino Transf (AST/SGOT) 19 Alanine Aminotransferase (ALT/SGPT) 13 Total Bilirubin 0.5 Sodium Level 134 Potassium Level 2.7 Chloride Level 93 Carbon Dioxide Level 31.9 Anion Gap 9 Estimat Glomerular Filtration Rate 37 Urine Color YELLOW Urine Turbidity CLEAR Urine pH 7.0 Urine Specific Shelly 1.010 Urine Protein NEG Urine Glucose (UA) NEG Urine Ketones NEG Urine Occult Blood NEG Urine Nitrite NEG Urine Bilirubin NEG Urine Urobilinogen 1.0 Urine Leukocyte Esterase NEG Urine Squamous Epithelial Cells 0-5 Microscopic Urinalysis Comment CULT NOT INDICATED Result Diagram: 08/28/17 1510 08/28/17 151 Caprini VTE Risk Assessment Caprini VTE Risk Assessment: Mod/High Risk (score >= 2) Caprini Risk Assessment Model Point Value = 1 Point Value = 2 Point Value = 3 Point Value = 5 Age 41-60 Minor surgery BMI > 25 kg/m2 Swollen legs Varicose veins or History of unexplained or recurrent spontaneous Oral contraceptives or hormone replacement Sepsis (< 1 month) Serious lung disease, including pneumonia (< 1 month) Abnormal pulmonary function Acute myocardial infarction Congestive heart failure (< 1 month) History of inflammatory bowel disease Medical patient at bed rest Age 61-74 Arthroscopic surgery Major open surgery (> 45 min) Laparoscopic surgery (> 45 min) Malignancy Confined to bed (> 72 hours) Immobilizing plaster cast Central venous access Age >= 75 History of VTE Family history of VTE Factor V Leiden Prothrombin [id number] Lupus anticoagulant Anticardiolipin antibodies Elevated serum homocysteine Heparin-induced thrombocytopenia Other congenital or acquired thrombophilia Stroke (< 1 month) Elective arthroplasty Hip, pelvis, or leg fracture Acute spinal cord injury (< 1 month) Prophylaxis Regimen Total Risk Factor Score Risk Level Prophylaxis Regimen 0-1 Low Early ambulation 2 Moderate Order ONE of the following: *Sequential Compression Device (SCD) *Heparin 5000 units SQ BID 3-4 Higher Order ONE of the following medications: *Heparin 5000 units SQ TID *Enoxaparin/Lovenox 40 mg SQ daily (WT < 150 kg, CrCl > 30 mL/min) *Enoxaparin/Lovenox 30 mg SQ daily (WT < 150 kg, CrCl > 10-29 mL/min) *Enoxaparin/Lovenox 30 mg SQ BID (WT < 150 kg, CrCl > 30 mL/min) AND/OR *Sequential Compression Device (SCD) 5 or more Highest Order ONE of the following medications: *Heparin 5000 units SQ TID (Preferred with Epidurals) *Enoxaparin/Lovenox 40 mg SQ daily (WT < 150 kg, CrCl > 30 mL/min) *Enoxaparin/Lovenox 30 mg SQ daily (WT < 150 kg, CrCl > 10-29 mL/min) *Enoxaparin/Lovenox 30 mg SQ BID (WT < 150 kg, CrCl > 30 mL/min) AND *Sequential Compression Device (SCD) Assessment and Plan Problem List: (1) Abdominal wall mass ICD Code: R22.2 - Localized swelling, mass and lump, trunk Status: Acute (2) Hypokalemia ICD Code: E87.6 - Hypokalemia Status: Acute (3) Stage III chronic kidney disease ICD Code: N18.3 - Stage III chronic kidney disease Status: Acute (4) Diabetes mellitus ICD Code: E11.9 - Diabetes mellitus Status: Acute (5) Acute respiratory failure ICD Code: J96.00 - Acute respiratory failure Status: Acute Assessment and Plan 71-year-old male admitted secondary to hypokalemia and bleeding anterior abdominal mass Hypokalemia Replace potassium and monitor On telemetry Bleeding anterior abdominal mass Likely spontaneous bleeding into seroma Reverse Coumadin Follow INR Surgery team has been consulted Atrial fibrillation Coronary artery disease Old myocardial infarction x 5 Congestive heart failure Holding INR as above, for bleeding Pressure bandage in place Hold all blood thinners Continue other baseline treatments Monitor on telemetry Hyperlipidemia Continue present treatment Follow as an outpatient Sleep apnea Continue CPAP at home settings Renal cyst Hepatitis B Macular degeneration Cirrhosis History of pancreatitis Gastroesophageal reflux disease History of skin cancer History of thyroid cancer History of radiation therapy Osteoarthritis Czolysu-Ffhfr-Ckqgb disease No acute changes to these conditions Monitor clinically DVT prophylaxis SCDs Physician Certification 2 Midnight Certification Type: Admission for Inpatient Services Order for Inpatient Services The services are ordered in accordance with Medicare regulations or non- Medicare payer requirements, as applicable. In the case of services not specified as inpatient-only, they are appropriately provided as inpatient services in accordance with the 2-midnight benchmark. Estimated LOS (days): 3 days is the estimated time the patient will need to remain in the hospital, assuming treatment plan goals are met and no additional complications. Post-Hospital Plan: Home Daniel Scott MD Aug 28, 2017 18:44
[2017-08-28] MEDS: ceFAZolin 2 GM PREMIX 50 ML IV SCH (19:54)
[2017-08-28] MEDS: POTASSIUM CHLORIDE 20 MEQ CONTROLLED RELEASE TAB PO SCH (19:54)
[2017-08-28] MEDS: FUROSEMIDE 40 MG TAB PO SCH (19:54)
[2017-08-28] MEDS: PRAVASTATIN SOD 40 MG TAB PO SCH (19:54)
[2017-08-28] MEDS: ACETAMINOPHEN/HYDROcodone 325 MG/10 MG TAB PO PRN (19:57)
[2017-08-28 20:00] VITALS: BP 128/68; PULSE 73; RESP 20; TEMP 97.3; O2SAT 97
[2017-08-28] MEDS: SODIUM CHLORIDE 0.9% FLUSH 10 ML FLUSH IV FLUSH SCH (21:00)
[2017-08-28] MEDS ORDERED: LEVOTHYROXINE SODIUM 125 MCG TAB PO SCH (21:00)
[2017-08-28 23:00] VITALS: PULSE 69
[2017-08-29] VITALS (9 sets, daily range): BP systolic 102–126; BP diastolic 51–87; PULSE 69–120; RESP 15–20; TEMP 97.1–99.3; O2SAT 93–96
[2017-08-29] MEDS: ceFAZolin 2 GM PREMIX 50 ML IV SCH ×3 (03:56→20:14)
[2017-08-29 06:52] LABS: AUTOMATED NEUTROPHIL # 4.3 TH/MM3 (1.8-7.7); BASOPHIL % 0.4 % (0.0-2.0); EOSINOPHIL # 0.9 TH/MM3 (0-0.4); EOSINOPHIL % 12.4 % (0.0-4.0); HEMATOCRIT 31.7 % (39.0-51.0); LYMPH % 17.9 % (9.0-44.0); LYMPHOCYTE # 1.2 TH/MM3 (1.0-4.8); MEAN CELL VOLUME 87.4 FL (80.0-100.0); MEAN CORPUSCULAR HEMOGLOBIN 27.6 PG (27.0-34.0); MEAN CORPUSCULAR HGB CONC 31.6 % (32.0-36.0); MEAN PLATELET VOLUME 7.4 FL (7.0-11.0); MONO % 7.5 % (0.0-8.0); MONOCYTE # 0.5 TH/MM3 (0-0.9); NEUT % 61.8 % (16.0-70.0); PLATELET COUNT 251 TH/MM3 (150-450); RED BLOOD COUNT 3.62 MIL/MM3 (4.50-5.90); RED CELL DISTRIBUTION WIDTH 17.5 % (11.6-17.2); WHITE BLOOD COUNT 6.9 TH/MM3 (4.0-11.0)
[2017-08-29 06:58] LABS: CHLORIDE 98 MEQ/L (98-107); SODIUM (NA) 137 MEQ/L (136-145)
[2017-08-29 07:01] LABS: INTERNATIONAL NORMALIZED RATIO 2.1 RATIO; PROTHROMBIN TIME - PATIENT 21.3 SEC (9.8-11.6)
[2017-08-29 07:22] LABS: ALBUMIN 2.7 GM/DL (3.4-5.0); ALKALINE PHOSPHATASE 118 U/L (45-117); ALT (GPT) 12 U/L (12-78); AST (GOT) 18 U/L (15-37); BICARBONATE 30.6 MEQ/L (21.0-32.0); BLOOD UREA NITROGEN 26 MG/DL (7-18); GLOMERULAR FILTRATION RATE 46 ML/MIN (>89); GLUCOSE,RANDOM 118 MG/DL (74-106); TOTAL BILIRUBIN ADULT 0.6 MG/DL (0.2-1.0); TOTAL PROTEIN 7.1 GM/DL (6.4-8.2)
[2017-08-29] MEDS ORDERED: POTASSIUM CHLORIDE 20 MEQ PWD PACKET PO ONE (08:15)
[2017-08-29 08:50] LABS: TARGET CELLS 1+ (NORMAL)
[2017-08-29] MEDS: SODIUM CHLORIDE 0.9% FLUSH 10 ML FLUSH IV FLUSH SCH ×2 (09:00→20:15)
[2017-08-29] MEDS: METOPROLOL SUCCINATE 25 MG EXTENDED RELEASE TAB PO SCH (09:09)
[2017-08-29] MEDS: FUROSEMIDE 40 MG TAB PO SCH ×2 (09:09→17:08)
[2017-08-29] MEDS: POTASSIUM CHLORIDE 20 MEQ CONTROLLED RELEASE TAB PO SCH ×2 (09:09→20:15)
[2017-08-29] MEDS: SODIUM CHLOR 0.9% 1000 ML INJ 1,000 ML IV SCH (09:09)
[2017-08-29] MEDS: LOSARTAN 50 MG TAB PO SCH (09:10)
[2017-08-29] MEDS: ACETAMINOPHEN/HYDROcodone 325 MG/10 MG TAB PO PRN ×3 (10:22→21:23)
[2017-08-29] MEDS ORDERED: PHYTONADIONE 10 MG/ML VIAL SQ ONE (11:00)
[2017-08-29] MEDS ORDERED: PHYTONADIONE 5 MG TAB PO ONE (12:30)
--- NOTE | 2017-08-29 14:36 | MB ---
cc: Omkar Mejia MD,Alvaro Santos,Heidi Lemos,Serjio Muse MD DATE OF CONSULT: I have reviewed hospital and office records. HISTORY OF PRESENT ILLNESS: The patient is a 71-year-old white man I am asked to see for preoperative clearance for removal of an abdominal mass. The patient has a history of bypass in 2004 with ZAVALETA to the LAD and vein grafts to obtuse marginal #2 and ramus. In 2006, he had a bare-metal stent to the mid RCA. All grafts were patent at that time. Catheterization 05/27 showed a 45% ejection fraction with triple vessel disease but with RCA disease up to 30%, along with patent grafts. Catheterization 11/27 showed patent grafts with an ejection fraction of 45%. The patient has had failed atrial fibrillation ablations and is in chronic atrial fibrillation. He has had a biventricular pacemaker defibrillator just in the biventricular mode, which was upgraded 2017. Echocardiogram in 2017 was difficult suggesting moderate left ventricular dysfunction. The patient has at least moderate chronic dyspnea on exertion, which is unchanged. He wears a CPAP mask. He has no other cardiopulmonary symptoms whatsoever. He has noted drainage of an area that was initially drained in 2010. He has had progressive enlargement of this area with bleeding more recently. PAST MEDICAL HISTORY: Include: 1. Chronic atrial fibrillation. 2. Cardiac as above. 3. Hypertension. 4. Hyperlipidemia. 5. Sleep apnea. 6. Obesity. 7. Thyroid cancer with thyroidectomy. 8. Cholecystectomy. 9. Macular degeneration. 10. Incisional hernia repair. ALLERGIES: ADHESIVES, PERFUME, CODEINE, TALWIN, VALIUM, AND ALSO SUPPOSEDLY IV DYE ON THE LIST. SOCIAL HISTORY: He is single and smoke and drank in the past but not at this point. MEDICATION LIST: Reviewed. He is chronically anticoagulated on warfarin, which is followed by his PCP. REVIEW OF SYSTEMS: Remarkable for chronic back and joint pain, weight loss, sleep issues and balance and memory issues, which are a problem but stable. DIAGNOSTIC DATA: EKG was not done but telemetry reveals atrial fibrillation with ventricular dependent pacemaker. Chest x-ray shows mild stable cardiomegaly with defibrillator. LABORATORY WORK: He is anemic with hematocrit 31.7. INR was 2.1 and 2.7. Potassium 2.7 and 3.6 today. Creatinine 1.8, which was decreased to 1.5. Liver functions normal. PHYSICAL EXAMINATION: GENERAL: He is very overweight but in no distress. He is alert and oriented x 3. HEENT: There are no xanthelasma and oropharyngeal mucosa normal. CHEST: With decreased breath sounds but clear. NECK: JVD normal. CARDIOVASCULAR: S1, S2, no definite murmurs or gallops. ABDOMEN: Has a mass but it otherwise benign. EXTREMITIES: Show no cyanosis, clubbing or edema. PULSES: Carotids without bruits. Radials 2+. Femorals 2+ without bruits. Pedals 1-2+. PROBLEMS: 1. Abdominal mass. 2. Ischemic cardiomyopathy. 3. Chronic atrial fibrillation. 4. Biventricular pacemaker. 5. Hypertension. 6. Hyperlipidemia. 7. Obesity. RECOMMENDATIONS: 1. I see no definite contraindications to abdominal mass surgery. I would consider him a moderate risk for this. We would certainly want to minimize the time he is off of the warfarin and I would recommend that he be on a baby aspirin daily while he is off the warfarin. When the warfarin is restarted and gets to a therapeutic level, the aspirin can be stopped. 2. Continue present medical regimen including his diuretics, beta blockers, ARB and statins. 3. Certainly, we want to make sure that his potassium level is optimized as this certainly would increase risk of malignant arrhythmias. 4. Would suggest surgery, contacting [employer] pacemakers to make sure that there are no special arrangements that need to be made to protect the pacemaker. 5. DVT prophylaxis per primary service. 6. I will not follow but be available if needed. The surgery should be done in the main hospital if needed. All questions were answered. MD NAV Palma/KRISTY , 02:04 PM , 02:35 PM
--- NOTE | 2017-08-29 15:02 | HHI.PR ---
Subjective Remarks INR level today is 2.1. He is not a candidate today for biopsy. Plan for biopsy in 1-2 days when INR is improved. Patient has no new complaints. Slight downward trend in hemoglobin. Potassium has stabilized with supplement. Objective Vital Signs Date Time Temp Pulse Resp B/P (MAP) Pulse Ox O2 Delivery O2 Flow Rate FiO2 08/29/17 13:58 99.3 73 16 107/53 (71) 95 08/29/17 13:17 73 08/29/17 08:47 97.1 71 15 102/51 (68) 95 08/29/17 04:00 98.6 72 20 121/60 (80) 94 08/29/17 00:11 95 21 08/29/17 00:00 99.3 77 20 126/58 (80) 96 08/28/17 23:00 69 08/28/17 20:00 97.3 73 20 128/68 (88) 97 08/28/17 18:40 97.2 76 18 142/67 (92) 96 08/28/17 18:20 08/28/17 16:45 75 18 120/60 (80) 97 Room Air I/O 08/28/17 08/28/17 08/28/17 08/29/17 08/29/17 08/29/17 07:00 15:00 23:00 07:00 15:00 23:00 Intake Total 390 ml Output Total 650 ml Balance -260 ml Intake Oral 240 ml IV Total 150 ml Output Urine Total 650 ml # Bowel Movements 0 Result Diagram: 08/29/17 0632 08/29/17 1150 Objective Remarks GENERAL: NAD, A&Ox3 HEAD: Normocephalic. NECK: Supple, trachea midline. No lymphadenopathy. EYES: No scleral icterus. No injection or drainage. CARDIOVASCULAR: Regular rate and rhythm without murmurs, gallops, or rubs. RESPIRATORY: Breath sounds equal bilaterally. No accessory muscle use. GASTROINTESTINAL: Abdomen soft, non-tender, nondistended. MUSCULOSKELETAL: No cyanosis, or edema. SKIN: Warm and dry. Abdominal wall seroma/hematoma is covered with a pressure dressing, no leaking of blood. NEURO: No focal neurological deficitis. A/P Problem List: (1) Stage III chronic kidney disease ICD Code: N18.3 - Stage III chronic kidney disease Status: Acute (2) Diabetes mellitus ICD Code: E11.9 - Diabetes mellitus Status: Acute (3) Abdominal wall mass ICD Code: R22.2 - Localized swelling, mass and lump, trunk Status: Acute (4) Hypokalemia ICD Code: E87.6 - Hypokalemia Status: Acute Assessment and Plan 71-year-old male admitted secondary to hypokalemia and bleeding anterior abdominal mass Hypokalemia Resolved for now Continue to monitor replace as needed Follow on telemetry Bleeding anterior abdominal mass Likely spontaneous bleeding into seroma Coumadin reversal in process Plan for biopsy when Coumadin reversed Follow INR Surgery team has been following Atrial fibrillation Coronary artery disease Old myocardial infarction x 5 Congestive heart failure Holding INR as above, for bleeding Pressure bandage in place Hold all blood thinners Continue other baseline treatments Monitor on telemetry Hyperlipidemia Continue present treatment Follow as an outpatient Sleep apnea Continue CPAP at home settings Renal cyst Hepatitis B Macular degeneration Cirrhosis History of pancreatitis Gastroesophageal reflux disease History of skin cancer History of thyroid cancer History of radiation therapy Osteoarthritis Mtlfmjk-Sauqm-Uiyqb disease No acute changes to these conditions Monitor clinically DVT prophylaxis SCDs Daniel Scott MD Aug 29, 2017 15:02
[2017-08-29] MEDS: PRAVASTATIN SOD 40 MG TAB PO SCH (20:14)
[2017-08-30] VITALS: BP 108/57; PULSE 70; RESP 16; TEMP 97.9; O2SAT 95
[2017-08-30] MEDS: ACETAMINOPHEN/HYDROcodone 325 MG/10 MG TAB PO PRN ×5 (01:54→22:14)
[2017-08-30] MEDS: ceFAZolin 2 GM PREMIX 50 ML IV SCH ×3 (04:10→21:01)
[2017-08-30] MEDS: LOSARTAN 50 MG TAB PO SCH (07:58)
[2017-08-30] MEDS: METOPROLOL SUCCINATE 25 MG EXTENDED RELEASE TAB PO SCH (07:58)
[2017-08-30] MEDS: FUROSEMIDE 40 MG TAB PO SCH ×2 (07:58→18:01)
[2017-08-30] MEDS: POTASSIUM CHLORIDE 20 MEQ CONTROLLED RELEASE TAB PO SCH ×2 (07:58→21:08)
[2017-08-30] MEDS: SODIUM CHLORIDE 0.9% FLUSH 10 ML FLUSH IV FLUSH SCH ×2 (07:59→21:01)
[2017-08-30 08:00] VITALS: BP 140/84; PULSE 71; RESP 16; TEMP 96.3; O2SAT 96
[2017-08-30 08:17] LABS: AUTOMATED NEUTROPHIL # 3.7 TH/MM3 (1.8-7.7); BASOPHIL % 0.5 % (0.0-2.0); EOSINOPHIL # 0.9 TH/MM3 (0-0.4); EOSINOPHIL % 14.6 % (0.0-4.0); HEMATOCRIT 32.3 % (39.0-51.0); HEMOGLOBIN 10.2 GM/DL (13.0-17.0); LYMPH % 20.9 % (9.0-44.0); LYMPHOCYTE # 1.4 TH/MM3 (1.0-4.8); MEAN CELL VOLUME 87.7 FL (80.0-100.0); MEAN CORPUSCULAR HEMOGLOBIN 27.9 PG (27.0-34.0); MEAN CORPUSCULAR HGB CONC 31.8 % (32.0-36.0); MEAN PLATELET VOLUME 7.9 FL (7.0-11.0); MONO % 8.2 % (0.0-8.0); MONOCYTE # 0.5 TH/MM3 (0-0.9); NEUT % 55.8 % (16.0-70.0); PLATELET COUNT 238 TH/MM3 (150-450); RED BLOOD COUNT 3.68 MIL/MM3 (4.50-5.90); RED CELL DISTRIBUTION WIDTH 17.6 % (11.6-17.2); WHITE BLOOD COUNT 6.5 TH/MM3 (4.0-11.0)
[2017-08-30 08:25] LABS: INTERNATIONAL NORMALIZED RATIO 1.4 RATIO; PROTHROMBIN TIME - PATIENT 13.9 SEC (9.8-11.6)
[2017-08-30 08:26] LABS: CHLORIDE 99 MEQ/L (98-107); SODIUM (NA) 137 MEQ/L (136-145)
[2017-08-30 08:34] LABS: CALCIUM 9.2 MG/DL (8.5-10.1); GLUCOSE,RANDOM 97 MG/DL (74-106)
[2017-08-30 08:35] LABS: ALBUMIN 2.7 GM/DL (3.4-5.0); BICARBONATE 29.7 MEQ/L (21.0-32.0); BLOOD UREA NITROGEN 25 MG/DL (7-18)
[2017-08-30 08:36] LABS: TOTAL BILIRUBIN ADULT 0.4 MG/DL (0.2-1.0)
[2017-08-30 08:37] LABS: ALT (GPT) 7 U/L (12-78); AST (GOT) 19 U/L (15-37)
[2017-08-30 08:38] LABS: ALKALINE PHOSPHATASE 114 U/L (45-117); GLOMERULAR FILTRATION RATE 50 ML/MIN (>89)
[2017-08-30] MEDS ORDERED: POTASSIUM CHLORIDE 10 MEQ CONTROLLED RELEASE TAB PO ONE (09:15)
--- NOTE | 2017-08-30 10:38 | HHI.PR ---
Subjective Remarks No progression in Anemia today. Potassium is 3.2, replacement provided. INR level today is 1.4. Plan for biopsy and wound vac placement in the near future. [place] [facility] [place]. Objective Vital Signs Date Time Temp Pulse Resp B/P (MAP) Pulse Ox O2 Delivery O2 Flow Rate FiO2 08/30/17 00:00 97.9 70 16 108/57 (74) 95 08/29/17 20:00 97.6 120 18 125/87 (100) 93 08/29/17 20:00 71 08/29/17 19:03 97.5 69 18 122/78 (93) 95 08/29/17 13:58 99.3 73 16 107/53 (71) 95 08/29/17 13:17 73 08/29/17 11:00 95 21 I/O 08/29/17 08/29/17 08/29/17 08/30/17 08/30/17 08/30/17 06:59 14:59 22:59 06:59 14:59 22:59 Intake Total 390 ml 1888 ml 50 ml Output Total 650 ml 250 ml Balance -260 ml 1888 ml -200 ml Intake Oral 240 ml 1000 ml 0 ml IV Total 150 ml 888 ml 50 ml Output Urine Total 650 ml 250 ml # Voids 4 # Bowel Movements 0 1 Result Diagram: 08/30/1772708/30/17727 Objective Remarks GENERAL: NAD, A&Ox3 HEAD: Normocephalic. NECK: Supple, trachea midline. No lymphadenopathy. EYES: No scleral icterus. No injection or drainage. CARDIOVASCULAR: Regular rate and rhythm without murmurs, gallops, or rubs. RESPIRATORY: Breath sounds equal bilaterally. No accessory muscle use. GASTROINTESTINAL: Abdomen soft, non-tender, nondistended. MUSCULOSKELETAL: No cyanosis, or edema. SKIN: Warm and dry. Abdominal wall seroma/hematoma is covered with a pressure dressing, no leaking of blood. NEURO: No focal neurological deficitis. A/P Problem List: (1) Stage III chronic kidney disease ICD Code: N18.3 - Stage III chronic kidney disease Status: Acute (2) Diabetes mellitus ICD Code: E11.9 - Diabetes mellitus Status: Acute (3) Abdominal wall mass ICD Code: R22.2 - Localized swelling, mass and lump, trunk Status: Acute (4) Hypokalemia ICD Code: E87.6 - Hypokalemia Status: Acute Assessment and Plan 71-year-old male admitted secondary to hypokalemia and bleeding anterior abdominal mass [place] [facility] Follow INR, Potassium, and CBC. Plan for biopsy and wound vac placement, at wound/seroma site. Hypokalemia Low today Continue to monitor replace as needed Follow on telemetry Bleeding anterior abdominal mass Likely spontaneous bleeding into seroma Coumadin reversal in process Plan for biopsy when Coumadin reversed Follow INR Surgery team has been following Atrial fibrillation Coronary artery disease Old myocardial infarction x 5 Congestive heart failure Holding INR as above, for bleeding Pressure bandage in place Hold all blood thinners Continue other baseline treatments Monitor on telemetry Hyperlipidemia Continue present treatment Follow as an outpatient Sleep apnea Continue CPAP at home settings Renal cyst Hepatitis B Macular degeneration Cirrhosis History of pancreatitis Gastroesophageal reflux disease History of skin cancer History of thyroid cancer History of radiation therapy Osteoarthritis Hwgkzrr-Xpioh-Lwizs disease No acute changes to these conditions Monitor clinically DVT prophylaxis SCDs Daniel Scott MD Aug 30, 2017 10:38
--- NOTE | 2017-08-30 11:01 | HHI.PR ---
cc: Alvaro Golden MD Subjective Subjective Notes Resting in bed No issues overnight Understands that he will be moved to [facility] for OR tomorrow if INR level okay Objective Vitals/I&O Vital Signs Date Time Temp Pulse Resp B/P (MAP) Pulse Ox O2 Delivery O2 Flow Rate FiO2 08/30/17 08:00 96.3 71 16 140/84 (102) 96 08/29/17 11:00 21 08/28/17 16:45 Room Air Labs Laboratory Tests Test 08/29/17 11:50 08/30/17 07:28 Potassium Level 3.6 3.2 White Blood Count 6.5 Red Blood Count 3.68 Hemoglobin 10.2 Hematocrit 32.3 Mean Corpuscular Volume 87.7 Mean Corpuscular Hemoglobin 27.9 Mean Corpuscular Hemoglobin Concent 31.8 Red Cell Distribution Width 17.6 Platelet Count 238 Mean Platelet Volume 7.9 Neutrophils (%) (Auto) 55.8 Lymphocytes (%) (Auto) 20.9 Monocytes (%) (Auto) 8.2 Eosinophils (%) (Auto) 14.6 Basophils (%) (Auto) 0.5 Neutrophils # (Auto) 3.7 Lymphocytes # (Auto) 1.4 Monocytes # (Auto) 0.5 Eosinophils # (Auto) 0.9 Basophils # (Auto) 0.0 CBC Comment DIFF FINAL Differential Comment Prothrombin Time 13.9 Prothromb Time International Ratio 1.4 Blood Urea Nitrogen 25 Creatinine 1.40 Random Glucose 97 Total Protein 7.0 Albumin 2.7 Calcium Level 9.2 Alkaline Phosphatase 114 Aspartate Amino Transf (AST/SGOT) 19 Alanine Aminotransferase (ALT/SGPT) 7 Total Bilirubin 0.4 Sodium Level 137 Chloride Level 99 Carbon Dioxide Level 29.7 Anion Gap 8 Estimat Glomerular Filtration Rate 50 Cardiovascular: Regular Lungs: Clear Abdomen: Other (dressing in place c/d/i ) Extremities: No edema A/P Assessment and Plan 71 year old male with multiple chronic medical conditions; large palpable mass -Await INR today; if 1.6 can proceed to OR today; if greater than 1.6 will need additional dose of Vitamin K -Regular diet; NPO after MN -OOB as tolerated -Continue pressure dressing -Transfer to [facility] for OR -Discussed with Dr. Scott Attending Note - Dr. Golden INR decreased; to OR today Discussed risks with patient; he vocalizes understanding and agrees to proceed. The exam, history, and the medical decision-making described in the above note were completed with the assistance of the mid-level provider. I reviewed and agree with the findings presented. I attest that I had a [id number] encounter with the patient on the same day, and personally performed and documented my assessment and findings in the medical record. Dina Eckert/First Nikolay HUTCHISON Aug 30, 2017 11:01 Alvaro Golden MD Sep 02, 2017 14:42
[2017-08-30 12:00] VITALS: BP 95/59; PULSE 62; RESP 16; TEMP 96.1; O2SAT 97
[2017-08-30 16:00] VITALS: BP 112/68; PULSE 72; RESP 14; TEMP 98; O2SAT 93
[2017-08-30 20:00] VITALS: BP 94/59; PULSE 75; RESP 20; TEMP 99.1; O2SAT 92
[2017-08-30] MEDS: PRAVASTATIN SOD 40 MG TAB PO SCH (21:05)
[2017-08-31] VITALS: BP 90/51; PULSE 75; RESP 20; TEMP 98.8; O2SAT 96
[2017-08-31] MEDS: ACETAMINOPHEN/HYDROcodone 325 MG/10 MG TAB PO PRN ×3 (02:11→21:20)
[2017-08-31] MEDS: ceFAZolin 2 GM PREMIX 50 ML IV SCH ×3 (03:44→19:22)
[2017-08-31 07:28] LABS: AUTOMATED NEUTROPHIL # 3.9 TH/MM3 (1.8-7.7); BASOPHIL % 0.6 % (0.0-2.0); EOSINOPHIL # 0.9 TH/MM3 (0-0.4); EOSINOPHIL % 14.2 % (0.0-4.0); HEMATOCRIT 32.3 % (39.0-51.0); HEMOGLOBIN 10.1 GM/DL (13.0-17.0); LYMPH % 20.1 % (9.0-44.0); LYMPHOCYTE # 1.3 TH/MM3 (1.0-4.8); MEAN CELL VOLUME 88.3 FL (80.0-100.0); MEAN CORPUSCULAR HEMOGLOBIN 27.7 PG (27.0-34.0); MEAN CORPUSCULAR HGB CONC 31.3 % (32.0-36.0); MEAN PLATELET VOLUME 7.6 FL (7.0-11.0); MONO % 8.2 % (0.0-8.0); MONOCYTE # 0.5 TH/MM3 (0-0.9); NEUT % 56.9 % (16.0-70.0); PLATELET COUNT 256 TH/MM3 (150-450); RED BLOOD COUNT 3.66 MIL/MM3 (4.50-5.90); RED CELL DISTRIBUTION WIDTH 17.7 % (11.6-17.2); WHITE BLOOD COUNT 6.6 TH/MM3 (4.0-11.0)
[2017-08-31 07:31] LABS: CHLORIDE 99 MEQ/L (98-107); SODIUM (NA) 136 MEQ/L (136-145)
[2017-08-31 07:34] LABS: CALCIUM 9.1 MG/DL (8.5-10.1); INTERNATIONAL NORMALIZED RATIO 1.2 RATIO; PROTHROMBIN TIME - PATIENT 12.2 SEC (9.8-11.6)
[2017-08-31 07:35] LABS: ALBUMIN 2.7 GM/DL (3.4-5.0); BICARBONATE 29.3 MEQ/L (21.0-32.0); BLOOD UREA NITROGEN 27 MG/DL (7-18); GLUCOSE,RANDOM 100 MG/DL (74-106)
[2017-08-31 07:38] LABS: ALT (GPT) 6 U/L (12-78); AST (GOT) 21 U/L (15-37); GLOMERULAR FILTRATION RATE 43 ML/MIN (>89)
[2017-08-31 07:39] LABS: TOTAL BILIRUBIN ADULT 0.3 MG/DL (0.2-1.0); TOTAL PROTEIN 7.1 GM/DL (6.4-8.2)
[2017-08-31 07:41] LABS: ALKALINE PHOSPHATASE 123 U/L (45-117)
[2017-08-31 08:00] VITALS: BP 142/83; PULSE 81; RESP 20; TEMP 99.3; O2SAT 99
[2017-08-31] MEDS: METOPROLOL SUCCINATE 25 MG EXTENDED RELEASE TAB PO SCH (08:29)
[2017-08-31] MEDS: POTASSIUM CHLORIDE 20 MEQ CONTROLLED RELEASE TAB PO SCH ×2 (08:30→21:20)
[2017-08-31] MEDS: LOSARTAN 50 MG TAB PO SCH (08:30)
[2017-08-31] MEDS: SODIUM CHLORIDE 0.9% FLUSH 10 ML FLUSH IV FLUSH SCH ×2 (08:36→21:21)
[2017-08-31] MEDS: FUROSEMIDE 40 MG TAB PO SCH ×2 (08:44→18:00)
[2017-08-31] MEDS ORDERED: POTASSIUM CHLORIDE 10 MEQ CONTROLLED RELEASE TAB PO ONE (09:00)
--- NOTE | 2017-08-31 10:33 | HHI.PR ---
Subjective Remarks No progression in Anemia today. Potassium is 3.4, replacement provided. INR level today is 1.2. Plan to transfer to [facility] for such procedures to occur, today. Plan for biopsy and wound vac placement. Objective Vital Signs Date Time Temp Pulse Resp B/P (MAP) Pulse Ox O2 Delivery O2 Flow Rate FiO2 08/31/17 08:00 99.3 81 20 142/83 (102) 99 08/31/17 03:18 19 08/31/17 00:00 98.8 75 20 90/51 (64) 96 08/30/17 20:00 99.1 75 20 94/59 (71) 92 08/30/17 16:00 98.0 72 14 112/68 (83) 93 08/30/17 12:00 96.1 62 16 95/59 (71) 97 I/O 08/30/17 08/30/17 08/30/17 08/31/17 08/31/17 08/31/17 07:00 15:00 23:00 07:00 15:00 23:00 Intake Total 50 ml 190 ml 0 ml Output Total 250 ml 700 ml 750 ml 200 ml Balance -200 ml -510 ml -750 ml -200 ml Intake Oral 0 ml 140 ml 0 ml IV Total 50 ml 50 ml Output Urine Total 250 ml 700 ml 750 ml 200 ml # Voids 3 1 # Bowel Movements 0 0 0 Result Diagram: 08/31/17 0650 08/31/17 0650 Objective Remarks GENERAL: NAD, A&Ox3 HEAD: Normocephalic. NECK: Supple, trachea midline. No lymphadenopathy. EYES: No scleral icterus. No injection or drainage. CARDIOVASCULAR: Regular rate and rhythm without murmurs, gallops, or rubs. RESPIRATORY: Breath sounds equal bilaterally. No accessory muscle use. GASTROINTESTINAL: Abdomen soft, non-tender, nondistended. MUSCULOSKELETAL: No cyanosis, or edema. SKIN: Warm and dry. Abdominal wall seroma/hematoma is covered with a pressure dressing, no leaking of blood. NEURO: No focal neurological deficitis. A/P Problem List: (1) Stage III chronic kidney disease ICD Code: N18.3 - Stage III chronic kidney disease Status: Acute (2) Diabetes mellitus ICD Code: E11.9 - Diabetes mellitus Status: Acute (3) Abdominal wall mass ICD Code: R22.2 - Localized swelling, mass and lump, trunk Status: Acute (4) Hypokalemia ICD Code: E87.6 - Hypokalemia Status: Acute Assessment and Plan 71-year-old male admitted secondary to hypokalemia and bleeding anterior abdominal mass Transfer to [facility] today. Follow INR, Potassium, and CBC. Plan for biopsy and wound vac placement, at wound/seroma site, today. Hypokalemia Low today Continue to monitor replace as needed Follow on telemetry Bleeding anterior abdominal mass Likely spontaneous bleeding into seroma Coumadin reversal in process Plan for biopsy when Coumadin reversed Follow INR Surgery team has been following Atrial fibrillation Coronary artery disease Old myocardial infarction x 5 Congestive heart failure Holding INR as above, for bleeding Pressure bandage in place Hold all blood thinners Continue other baseline treatments Monitor on telemetry Hyperlipidemia Continue present treatment Follow as an outpatient Sleep apnea Continue CPAP at home settings Renal cyst Hepatitis B Macular degeneration Cirrhosis History of pancreatitis Gastroesophageal reflux disease History of skin cancer History of thyroid cancer History of radiation therapy Osteoarthritis Mjhjzsa-Nssyp-Yuifx disease No acute changes to these conditions Monitor clinically DVT prophylaxis SCDs Daniel Scott MD Aug 31, 2017 10:33
[2017-08-31] MEDS ORDERED: ePHEDrine/NS 25 MG/5 ML SYRINGE IV ONE (12:00)
[2017-08-31] MEDS ORDERED: ROCURONIUM INJ 50 MG/5 ML SYRINGE IV PUSH ONE (12:00)
[2017-08-31] MEDS ORDERED: LIDOCAINE HCL 1% PF 5 ML SYRINGE OTHER ONE (12:00)
[2017-08-31] MEDS ORDERED: PROPOFOL 200 MG/20 ML AMP IV ONE (12:00)
[2017-08-31] MEDS ORDERED: DEXAMETHASONE SOD PHOS 4 MG/ML VIAL IV ONE (12:00)
[2017-08-31] MEDS ORDERED: NEOSTIGMINE 5 MG/5 ML SYRINGE IV PUSH ONE (12:00)
[2017-08-31] MEDS ORDERED: ONDANSETRON HCL 4 MG/2 ML VIAL IV ONE (12:00)
[2017-08-31] MEDS ORDERED: GLYCOPYRROLATE 1 MG/5 ML SYRINGE IV PUSH ONE (12:00)
[2017-08-31] MEDS ORDERED: CHLORHEXIDINE GLUCONATE 2 % 1 PACK (2 CLOTHS) TOPICAL PRN (12:30)
[2017-08-31] MEDS ORDERED: METOPROLOL TARTRATE 25 MG TAB PO PRN (12:30)
[2017-08-31] MEDS ORDERED: LACTATED RINGER'S 1000 ML IV PRN (12:30)
[2017-08-31] MEDS ORDERED: INSULIN HUMAN REGULAR 1,000 UNITS/10 ML VIAL SQ PRN (12:30)
[2017-08-31] MEDS ORDERED: SODIUM CHLORID 0.9% 500 ML IV PRN (12:30)
[2017-08-31] MEDS ORDERED: POVIDONE IODINE 5% (ANTISEPSIS KIT) 4 APPLICATIONS EACH NARE PRN (12:30)
[2017-08-31] MEDS ORDERED: LIDOCAINE HCL 1% PF 10 ML VIAL ONE (12:45)
[2017-08-31] MEDS ORDERED: ceFAZolin INJ 1,000 MG VIAL ONE (12:46)
[2017-08-31] MEDS ORDERED: NEOMYCIN/POLYMYXIN 1 ML G.U. IRRIGANT ONE (12:47)
[2017-08-31] MEDS ORDERED: DO NOT ADM ANY ANTICOAGULANT DRUGS PRN (15:41)
[2017-08-31] MEDS ORDERED: *morphine SULFATE 10 MG/ML PERIprocedure ONLY ONE ×2 (15:46→18:14)
--- NOTE | 2017-08-31 15:59 | HHI.PR ---
cc: Alvaro Golden MD Immediate Post Op Note Procedure Date: Aug 31, 2017 Pre Op Diagnosis: Hematoma anterior abdominal wall Post Op Diagnosis: Chronic hematoma, anterior abdominal wall Surgeon: Alvaro Golden Slitting And Shipping Supervisor(s): JIMMIE Gonzalez Procedure: Irrigation and debridement anterior abdominal wall with excision 50cm2 skin and subcutaneous tissue Findings: Old hematoma anterior abdominal wall Complications: None Specimen(s) removed: C&S hematoma to microbiology Estimated blood loss: 100 ml Anesthesia: General Drains: None Patient to: PACU Patient Condition: Good Date/Time of Procedure: SEE SURGICAL CARE RECORD Alvaro Golden MD Aug 31, 2017 15:59
[2017-08-31] MEDS ORDERED: *morphine SULFATE 4 MG/ML PERIprocedure ONLY ONE (19:36)
[2017-08-31 20:00] VITALS: BP 100/61; PULSE 89; RESP 18; TEMP 97.8; O2SAT 93
[2017-08-31] MEDS: PRAVASTATIN SOD 40 MG TAB PO SCH (21:00)
[2017-09-01 00:25] VITALS: BP 109/58; PULSE 86; RESP 18; TEMP 97.1; O2SAT 92
[2017-09-01] MEDS ORDERED: TAMSULOSIN HCL 0.4 MG CAP PO ONE (00:30)
[2017-09-01] MEDS: ACETAMINOPHEN/HYDROcodone 325 MG/10 MG TAB PO PRN ×6 (01:00→23:19)
[2017-09-01] MEDS: ceFAZolin 2 GM PREMIX 50 ML IV SCH ×3 (05:27→21:51)
[2017-09-01 07:02] LABS: AUTOMATED NEUTROPHIL # 5.2 TH/MM3 (1.8-7.7); BASOPHIL % 0.2 % (0.0-2.0); EOSINOPHIL % 0.2 % (0.0-4.0); HEMATOCRIT 32.7 % (39.0-51.0); HEMOGLOBIN 10.7 GM/DL (13.0-17.0); LYMPH % 13.3 % (9.0-44.0); LYMPHOCYTE # 0.9 TH/MM3 (1.0-4.8); MEAN CELL VOLUME 88.5 FL (80.0-100.0); MEAN CORPUSCULAR HEMOGLOBIN 28.8 PG (27.0-34.0); MEAN CORPUSCULAR HGB CONC 32.6 % (32.0-36.0); MEAN PLATELET VOLUME 7.8 FL (7.0-11.0); MONO % 5.7 % (0.0-8.0); MONOCYTE # 0.4 TH/MM3 (0-0.9); NEUT % 80.6 % (16.0-70.0); PLATELET COUNT 270 TH/MM3 (150-450); RED CELL DISTRIBUTION WIDTH 18.8 % (11.6-17.2); WHITE BLOOD COUNT 6.5 TH/MM3 (4.0-11.0)
[2017-09-01 07:08] LABS: INTERNATIONAL NORMALIZED RATIO 1.2 RATIO; PROTHROMBIN TIME - PATIENT 12.3 SEC (9.8-11.6)
[2017-09-01 07:28] LABS: ALBUMIN 2.9 GM/DL (3.4-5.0); BLOOD UREA NITROGEN 27 MG/DL (7-18); CALCIUM 9.5 MG/DL (8.5-10.1); CHLORIDE 98 MEQ/L (98-107); CREATININE 1.67 MG/DL (0.60-1.30); GLOMERULAR FILTRATION RATE 41 ML/MIN (>89); GLUCOSE,RANDOM 127 MG/DL (74-106); SODIUM (NA) 136 MEQ/L (136-145)
[2017-09-01 07:30] LABS: ALT (GPT) 8 U/L (12-78); AST (GOT) 20 U/L (15-37)
[2017-09-01 07:32] LABS: ALKALINE PHOSPHATASE 113 U/L (45-117); TOTAL BILIRUBIN ADULT 0.4 MG/DL (0.2-1.0); TOTAL PROTEIN 7.3 GM/DL (6.4-8.2)
[2017-09-01 08:00] VITALS: BP 108/59; PULSE 70; RESP 18; TEMP 96.4; O2SAT 93
[2017-09-01] MEDS: METOPROLOL SUCCINATE 25 MG EXTENDED RELEASE TAB PO SCH (08:48)
[2017-09-01] MEDS: POTASSIUM CHLORIDE 20 MEQ CONTROLLED RELEASE TAB PO SCH ×2 (08:48→21:50)
[2017-09-01] MEDS: LOSARTAN 50 MG TAB PO SCH (08:48)
[2017-09-01] MEDS: SODIUM CHLORIDE 0.9% FLUSH 10 ML FLUSH IV FLUSH SCH ×2 (08:49→21:00)
[2017-09-01] MEDS: FUROSEMIDE 40 MG TAB PO SCH (10:42)
--- NOTE | 2017-09-01 11:56 | HHI.PR ---
cc: Alvaro Golden MD Subjective Subjective Notes "I have been having problems with urinary retention for quite some time now." "My sister is going to bring my walker from home." Frustrated with heart healthy diet Objective Vitals/I&O Vital Signs Date Time Temp Pulse Resp B/P (MAP) Pulse Ox O2 Delivery O2 Flow Rate FiO2 09/01/17 08:00 96.4 70 18 108/59 (75) 93 08/31/17 18:30 Nasal Cannula 2 08/29/17 11:00 21 Labs Laboratory Tests Test 09/01/17 06:11 White Blood Count 6.5 Red Blood Count 3.70 Hemoglobin 10.7 Hematocrit 32.7 Mean Corpuscular Volume 88.5 Mean Corpuscular Hemoglobin 28.8 Mean Corpuscular Hemoglobin Concent 32.6 Red Cell Distribution Width 18.8 Platelet Count 270 Mean Platelet Volume 7.8 Neutrophils (%) (Auto) 80.6 Lymphocytes (%) (Auto) 13.3 Monocytes (%) (Auto) 5.7 Eosinophils (%) (Auto) 0.2 Basophils (%) (Auto) 0.2 Neutrophils # (Auto) 5.2 Lymphocytes # (Auto) 0.9 Monocytes # (Auto) 0.4 Eosinophils # (Auto) 0.0 Basophils # (Auto) 0.0 CBC Comment DIFF FINAL Differential Comment Prothrombin Time 12.3 Prothromb Time International Ratio 1.2 Blood Urea Nitrogen 27 Creatinine 1.67 Random Glucose 127 Total Protein 7.3 Albumin 2.9 Calcium Level 9.5 Alkaline Phosphatase 113 Aspartate Amino Transf (AST/SGOT) 20 Alanine Aminotransferase (ALT/SGPT) 8 Total Bilirubin 0.4 Sodium Level 136 Potassium Level 4.3 Chloride Level 98 Carbon Dioxide Level 28.0 Anion Gap 10 Estimat Glomerular Filtration Rate 41 Date/Time Source Procedure Growth Status 08/31/17 15:15 Wound Abdomen Acid Fast Stain Pending Received 08/31/17 15:15 Wound Abdomen Mycobacterial Culture Pending Received Cardiovascular: Regular Lungs: Clear Abdomen: Other (Abdominal wound vac in place with good seal ) Extremities: No edema A/P Assessment and Plan 71 year old male with multiple chronic medical conditions; large palpable mass -POD1 evacuation of abdominal hematoma; Wound Vac placement -Plan for Wound Vac change in OR on Monday -Regular diet -OOB as tolerated---PT eval and treat; sister bringing patient's walker from home -Discussed plan with Dr. Appiah and Casandra RN Attending Note - Dr. Golden Pain better, old drainage in canister Will change VAC on Monday in OR. Change antibiotics when culture returns. The exam, history, and the medical decision-making described in the above note were completed with the assistance of the mid-level provider. I reviewed and agree with the findings presented. I attest that I had a [id number] encounter with the patient on the same day, and personally performed and documented my assessment and findings in the medical record. Dina Eckert/First Nikolay HUTCHISON Sep 01, 2017 11:56 Alvaro Golden MD Sep 02, 2017 14:38
[2017-09-01 12:00] VITALS: BP 133/69; PULSE 81; RESP 18; TEMP 97.1; O2SAT 97
[2017-09-01 16:00] VITALS: BP 116/59; PULSE 69; RESP 20; TEMP 97.4; O2SAT 95
--- NOTE | 2017-09-01 16:28 | HHI.PR ---
Subjective Remarks The patient was using his BiPAP. He said that he has not been following with a urologist but he does use Flomax twice a day. He was requesting a regular diet. He says the pain medications have been working. No acute complaints at this time. Objective Vitals Vital Signs Date Time Temp Pulse Resp B/P (MAP) Pulse Ox O2 Delivery O2 Flow Rate FiO2 09/01/17 12:00 97.1 81 18 133/69 (90) 97 09/01/17 08:00 96.4 70 18 108/59 (75) 93 09/01/17 00:25 97.1 86 18 109/58 (75) 92 08/31/17 20:00 97.8 89 18 100/61 (74) 93 08/31/17 18:30 85 20 125/60 (81) 97 Nasal Cannula 2 08/31/17 17:30 87 20 102/57 (72) 97 Nasal Cannula 2 08/31/17 16:30 82 20 126/55 (78) 97 Nasal Cannula 2 I/O 08/31/17 08/31/17 08/31/17 09/01/17 09/01/17 09/01/17 06:59 14:59 22:59 06:59 14:59 22:59 Intake Total 0 ml 1050 ml Output Total 750 ml 200 ml 100 ml 950 ml 150 ml Balance -750 ml -200 ml 950 ml -950 ml -150 ml Intake Oral 0 ml IV Total 1050 ml Output Urine Total 750 ml 200 ml 950 ml Drainage Total 150 ml Estimated Blood Loss 100 ml # Voids 3 1 # Bowel Movements 0 0 Result Diagram: 09/01/17 0611 09/01/17 06 Objective Remarks GENERAL: Resting comfortably. HEAD: Normocephalic. NECK: Supple, trachea midline. No lymphadenopathy. EYES: No scleral icterus. No injection or drainage. CARDIOVASCULAR: Regular rate and rhythm without murmurs, gallops, or rubs. RESPIRATORY: Breath sounds equal bilaterally. No accessory muscle use. GASTROINTESTINAL: Abdomen soft, non-tender, nondistended. MUSCULOSKELETAL: No cyanosis, or edema. SKIN: Warm and dry. Wound VAC in place on lower abdominal wall. NEURO: No focal neurological deficits. PSYCH: Mood and affect appropriate. Procedures evacuation of abdominal hematoma; Wound Vac placement Medications and IVs Current Medications Medications (Trade) Dose Ordered Sig/Lan Route Start Time Stop Time Status Last Admin (NS Flush) 2 ml UNSCH PRN IV FLUSH 08/28/17 17:30 (NS Flush) 2 ml BID IV FLUSH 08/28/17 21:00 08/31/17 21:21 (Zofran Inj) 4 mg Q6H PRN IVP 08/28/17 17:30 ([place] 5-325 Mg) 1 tab Q4H PRN PO 08/28/17 17:30 ([place] 10-325 Mg) 1 tab Q4H PRN PO 08/28/17 17:30 09/01/17 15:39 (Narcan Inj) 0.4 mg UNSCH PRN IV PUSH 08/28/17 17:30 (Milk Of Solo Liq) 30 ml Q12H PRN PO 08/28/17 17:30 Cefazolin Sodium/ Dextrose 50 ml @ 100 mls/hr Q8H IV 08/28/17 20:00 09/01/17 12:00 (Lasix) 40 mg BID@0900,1800 PO 08/28/17 21:00 09/01/17 10:42 (Synthroid) 125 mcg BID PO 08/28/17 21:00 Future Hold 08/28/17 19:54 (Toprol Xl) 25 mg DAILY PO 08/29/17 09:00 09/01/17 08:48 (KCl) 20 meq BID PO 08/28/17 21:00 09/01/17 08:48 (Cozaar) 50 mg DAILY PO 08/29/17 09:00 09/01/17 08:48 (Pravachol) 80 mg HS PO 08/28/17 21:00 08/30/17 21:05 Lactated Ringer's 1,000 ml @ 30 mls/hr Q24H PRN IV 08/31/17 12:30 09/03/17 12:29 08/31/17 11:30 Sodium Chloride 500 ml @ 30 mls/hr [id number] PRN IV 08/31/17 12:30 09/03/17 12:29 (Lopressor) 25 mg TRAFFIC OPERATIONS ENGINEER PRN PO 08/31/17 12:30 09/03/17 12:29 (Betadine 5% Antisepsis Kit) 1 applic TRAFFIC OPERATIONS ENGINEER PRN EACH NARE 08/31/17 12:30 3/18/18 12:29 08/31/17 11:30 (Chlorhexidine 2% Cloth) 3 pack TRAFFIC OPERATIONS ENGINEER PRN TOPICAL 08/31/17 12:30 09/03/17 12:29 08/31/17 11:30 (NovoLIN R INJ) See Protocol Table ... TRAFFIC OPERATIONS ENGINEER PRN SQ 08/31/17 12:30 09/03/17 12:29 (Flomax) 0.4 mg DAILY PO 09/02/17 09:00 A/P Problem List: (1) Abdominal wall mass ICD Code: R22.2 - Localized swelling, mass and lump, trunk Status: Acute (2) Hypokalemia ICD Code: E87.6 - Hypokalemia Status: Acute (3) Stage III chronic kidney disease ICD Code: N18.3 - Stage III chronic kidney disease Status: Acute (4) Diabetes mellitus ICD Code: E11.9 - Diabetes mellitus Status: Acute (5) Acute respiratory failure ICD Code: J96.00 - Acute respiratory failure Status: Acute Assessment and Plan 71-year-old male admitted secondary to hypokalemia and bleeding anterior abdominal mass Hypokalemia Improved Continue to monitor replace as needed Follow on telemetry Bleeding anterior abdominal mass Likely spontaneous bleeding into seroma S/p Coumadin reversal General surgery consult appreciated. S/p evacuation of abdominal hematoma; Wound Vac placement. Follow INR Surgery planning on taking back to OR Monday Continue antibiotics Atrial fibrillation Coronary artery disease Old myocardial infarction x 5 Congestive heart failure Holding Coumadin as above, for bleeding Hold all blood thinners until cleared by surgery Continue other baseline treatments Monitor on telemetry Acute renal insufficiency Possibly chronic component. - Hold diuretics and losartan. - Check renal ultrasound. - Start Flomax. - Follow BMP and avoid nephrotoxic agents. Sleep apnea Continue CPAP/ BiPAP at home settings Renal cyst Hepatitis B Macular degeneration Cirrhosis History of pancreatitis Gastroesophageal reflux disease History of skin cancer History of thyroid cancer History of radiation therapy Osteoarthritis Amvhfiw-Mexon-Ukcgt disease No acute changes to these conditions Monitor clinically DVT prophylaxis AARTIs Alvaro Appiah DO Sep 01, 2017 16:28
--- NOTE | 2017-09-01 19:02 | MP ---
cc: Alvaro Golden MD DATE OF OPERATION: 08/31/2017 PROCEDURE: Irrigation and debridement, anterior abdominal wall with excision 50 square cm, skin and subcutaneous tissue. PREOPERATIVE DIAGNOSIS: Hematoma, anterior abdominal wall. POSTOPERATIVE DIAGNOSIS: Hematoma, anterior abdominal wall. ANESTHESIA: General endotracheal. SURGEON: Alvaro Golden MD PADDING MACHINE OPERATOR: JIMMIE Pete ESTIMATED BLOOD LOSS: 100 mL COMPLICATIONS: None. DRAINS: None. SPECIMEN: C and S of hematoma to microbiology. PROCEDURE IN DETAIL: The patient was taken to the operating room, and placed on the operating table in the supine position. After an adequate level of general endotracheal anesthesia was achieved, the abdomen was prepped and draped in the usual fashion. Timeout was taken confirming the correct patient, site, and procedure to be performed. Old scar was excised and the hematoma was entered. A large amount of old hematoma material was encountered and this was manually scooped out after culturing. The wound was then irrigated with 3 liters of pulse lavage irrigation. Small bleeding points were controlled with electrocautery. A medium VAC was applied and placed with Ioban to obtain a seal. Continuous VAC suction was applied, and the patient was then extubated and taken back to the recovery room in stable condition. Sponge, needle and instrument counts were reported to be correct. The patient tolerated the procedure well. MD DELILAH Alvarez/SB , 06:39 PM , 07:00 PM
[2017-09-01 20:00] VITALS: BP 111/62; PULSE 77; RESP 18; TEMP 96.4; O2SAT 93
[2017-09-01] MEDS: TAMSULOSIN HCL 0.4 MG CAP PO SCH (21:50)
[2017-09-01] MEDS: PRAVASTATIN SOD 40 MG TAB PO SCH (21:50)
--- NOTE | 2017-09-01 22:18 | RADRPT ---
EXAM DATE/TIME: 09/01/2017 19:00 [facility] COMPARISON: No previous studies available for comparison. INDICATIONS : Increased BUN/Creatnine. MEDICAL HISTORY : Myocardial infarction. Congestive heart failure. Hypercholesterolemia. Thyroid disease. Dizziness. An gioplasty. Chest pain. Atrial fibrillation. Sleep apnea. Gastrosophageal reflux disease. Arthritis. T hyroid cancer. Skin cancer. Radiation therapy. Cirrhosis. SURGICAL HISTORY : CABG. Coronary artery stent. Pacemaker. Cholecystectomy. Right foot surgery. ENCOUNTER: Initial ACUITY: 1 day PAIN SCORE: 0/10 LOCATION: Bilateral flank MEASUREMENTS: RIGHT KIDNEY: 13.0 x 5.8 x 4.8 cm LEFT KIDNEY: 11.5 x 4.0 x 4.4 cm FINDINGS: RIGHT KIDNEY: Renal cortex is normal in thickness and echotexture. 18 mm cyst upper pole. No hydronephrosis, stone , or solid mass. LEFT KIDNEY: Renal cortex is normal in thickness and echotexture. No hydronephrosis, stone, or mass. BLADDER: Within normal limits given the degree of distension. CONCLUSION: No acute abnormality demonstrated. Benign appearing cyst right upper pole. Kei Gerardo MD on September 01, 2017 at 22:15 Board Certified Radiologist. This report was verified electronically.
[2017-09-02] VITALS (7 sets, daily range): BP systolic 103–126; BP diastolic 55–66; PULSE 61–88; RESP 18; TEMP 95.3–96.7; O2SAT 90–95
[2017-09-02] MEDS: ACETAMINOPHEN/HYDROcodone 325 MG/10 MG TAB PO PRN ×5 (05:31→21:54)
[2017-09-02] MEDS: ceFAZolin 2 GM PREMIX 50 ML IV SCH ×3 (05:33→21:54)
[2017-09-02] MEDS: SODIUM CHLORIDE 0.9% FLUSH 10 ML FLUSH IV FLUSH SCH ×2 (08:35→20:13)
[2017-09-02] MEDS: TAMSULOSIN HCL 0.4 MG CAP PO SCH ×2 (08:36→20:13)
[2017-09-02] MEDS: POTASSIUM CHLORIDE 20 MEQ CONTROLLED RELEASE TAB PO SCH ×2 (08:37→20:13)
[2017-09-02] MEDS: METOPROLOL SUCCINATE 25 MG EXTENDED RELEASE TAB PO SCH (08:38)
[2017-09-02] MEDS ORDERED: TAMSULOSIN HCL 0.4 MG CAP PO SCH (09:00)
[2017-09-02 10:50] LABS: HEMATOCRIT 30.7 % (39.0-51.0); HEMOGLOBIN 9.9 GM/DL (13.0-17.0); MEAN CELL VOLUME 88.8 FL (80.0-100.0); MEAN CORPUSCULAR HEMOGLOBIN 28.8 PG (27.0-34.0); MEAN CORPUSCULAR HGB CONC 32.4 % (32.0-36.0); MEAN PLATELET VOLUME 7.9 FL (7.0-11.0); PLATELET COUNT 263 TH/MM3 (150-450); RED BLOOD COUNT 3.46 MIL/MM3 (4.50-5.90); RED CELL DISTRIBUTION WIDTH 18.6 % (11.6-17.2); WHITE BLOOD COUNT 6.7 TH/MM3 (4.0-11.0)
[2017-09-02 10:54] LABS: INTERNATIONAL NORMALIZED RATIO 1.2 RATIO; PROTHROMBIN TIME - PATIENT 11.9 SEC (9.8-11.6)
[2017-09-02 11:17] LABS: BICARBONATE 29.4 MEQ/L (21.0-32.0); CALCIUM 9.2 MG/DL (8.5-10.1); CREATININE 1.46 MG/DL (0.60-1.30); MAGNESIUM 1.9 MG/DL (1.5-2.5)
[2017-09-02] MEDS: DOCUSATE SODIUM 50 MG/SENNA 8.6 MG TAB PO SCH ×2 (15:43→20:13)
[2017-09-02] MEDS ORDERED: RESP: ALBUTEROL 2.5 MG/IPRATROPIUM 0.5 MG NEB (SCH) NEB ONE (16:45)
[2017-09-02] MEDS ORDERED: RESP: ALBUTEROL 2.5 MG/IPRATROPIUM 0.5 MG NEB (PRN) NEB (16:45)
[2017-09-02] MEDS ORDERED: POLYETHYLENE GLYCOL 17 GM PKG PO PRN (16:45)
--- NOTE | 2017-09-02 16:45 | HHI.PR ---
Subjective Remarks The patient said that he was having a little difficulty breathing. He wanted to know the results of his kidney ultrasound. He wanted to know if he could get rid of the Cuenca catheter. He said his pain was well-controlled. He is aware he will be going to the operating room on Monday. He wanted some stool softeners. Discussed with nursing. Objective Vitals Vital Signs Date Time Temp Pulse Resp B/P (MAP) Pulse Ox O2 Delivery O2 Flow Rate FiO2 09/02/17 16:16 96.5 86 18 103/60 (74) 93 09/02/17 12:28 96.3 86 18 106/65 (79) 94 09/02/17 08:33 95.7 88 18 110/64 (79) 94 09/02/17 07:29 18 09/02/17 04:00 95.3 71 18 109/57 (74) 90 09/02/17 00:00 96.7 75 18 126/66 (86) 95 09/01/17 20:00 96.4 77 18 111/62 (78) 93 I/O 09/01/17 09/01/17 09/01/17 09/02/17 09/02/17 09/02/17 07:00 15:00 23:00 07:00 15:00 23:00 Intake Total 720 ml 240 ml 480 ml Output Total 1100 ml 500 ml 1500 ml Balance -1100 ml 220 ml -1260 ml 480 ml Intake Oral 720 ml 240 ml 480 ml Output Urine Total 950 ml 500 ml 1500 ml Drainage Total 150 ml # Voids 3 # Bowel Movements 0 Result Diagram: 09/02/17 1017 09/02/17 1017 Imaging Last Impressions Renal Ultrasound 09/01/17 0000 Signed Impressions: Service Date/Time: Friday, September 01, 2017 19:00 - CONCLUSION: No acute abnormality demonstrated. Benign appearing cyst right upper pole. Kei Gerardo MD Objective Remarks GENERAL: Resting comfortably. HEAD: Normocephalic. NECK: Supple, trachea midline. No lymphadenopathy. EYES: No scleral icterus. No injection or drainage. CARDIOVASCULAR: Regular rate and rhythm without murmurs, gallops, or rubs. RESPIRATORY: Breath sounds equal bilaterally. No accessory muscle use. GASTROINTESTINAL: Abdomen soft, non-tender, nondistended. MUSCULOSKELETAL: No cyanosis, or edema. SKIN: Warm and dry. Wound VAC in place on lower abdominal wall. NEURO: No focal neurological deficits. PSYCH: Mood and affect appropriate. Procedures evacuation of abdominal hematoma; Wound Vac placement Medications and IVs Current Medications Medications (Trade) Dose Ordered Sig/Lan Route Start Time Stop Time Status Last Admin (NS Flush) 2 ml UNSCH PRN IV FLUSH 08/28/17 17:30 (NS Flush) 2 ml BID IV FLUSH 08/28/17 21:00 08/31/17 21:21 (Zofran Inj) 4 mg Q6H PRN IVP 08/28/17 17:30 ([place] 5-325 Mg) 1 tab Q4H PRN PO 08/28/17 17:30 ([place] 10-325 Mg) 1 tab Q4H PRN PO 08/28/17 17:30 09/02/17 13:20 (Narcan Inj) 0.4 mg UNSCH PRN IV PUSH 08/28/17 17:30 (Milk Of Magnesia Liq) 30 ml Q12H PRN PO 08/28/17 17:30 Cefazolin Sodium/ Dextrose 50 ml @ 100 mls/hr Q8H IV 08/28/17 20:00 09/02/17 12:20 (Lasix) 40 mg BID@0900,1800 PO 08/28/17 21:00 Future Hold 09/01/17 10:42 (Synthroid) 125 mcg BID PO 08/28/17 21:00 Future Hold 08/28/17 19:54 (Toprol Xl) 25 mg DAILY PO 08/29/17 09:00 09/02/17 08:38 (KCl) 20 meq BID PO 08/28/17 21:00 09/02/17 08:37 (Cozaar) 50 mg DAILY PO 08/29/17 09:00 Future Hold 09/01/17 08:48 (Pravachol) 80 mg HS PO 08/28/17 21:00 09/01/17 21:50 Lactated Ringer's 1,000 ml @ 30 mls/hr Q24H PRN IV 08/31/17 12:30 09/03/17 12:29 08/31/17 11:30 Sodium Chloride 500 ml @ 30 mls/hr [id number] PRN IV 08/31/17 12:30 09/03/17 12:29 (Lopressor) 25 mg AUTO TIRE RECAPPER PRN PO 08/31/17 12:30 09/03/17 12:29 (Betadine 5% Antisepsis Kit) 1 applic AUTO TIRE RECAPPER PRN EACH NARE 08/31/17 12:30 09/03/17 12:29 08/31/17 11:30 (Chlorhexidine 2% Cloth) 3 pack AUTO TIRE RECAPPER PRN TOPICAL 08/31/17 12:30 09/03/17 12:29 08/31/17 11:30 (NovoLIN R INJ) See Protocol Table ... AUTO TIRE RECAPPER PRN SQ 08/31/17 12:30 09/03/17 12:29 (Flomax) 0.4 mg BID PO 09/01/17 21:00 09/02/17 08:36 (Ladan-Colace) 1 tab BID PO 09/02/17 15:30 09/02/17 15:43 A/P Problem List: (1) Abdominal wall mass ICD Code: R22.2 - Localized swelling, mass and lump, trunk Status: Acute (2) Hypokalemia ICD Code: E87.6 - Hypokalemia Status: Acute (3) Stage III chronic kidney disease ICD Code: N18.3 - Stage III chronic kidney disease Status: Acute (4) Diabetes mellitus ICD Code: E11.9 - Diabetes mellitus Status: Acute (5) Acute respiratory failure ICD Code: J96.00 - Acute respiratory failure Status: Acute Assessment and Plan 71-year-old male admitted secondary to hypokalemia and bleeding anterior abdominal mass Bleeding anterior abdominal mass/ Anemia Likely spontaneous bleeding into seroma. S/p Coumadin reversal. General surgery consult appreciated. S/p evacuation of abdominal hematoma; Wound Vac placement. - Follow INR and CBC. - Surgery planning on taking back to OR Monday. - Continue antibiotics. - pain control with a bowel regimen. Sleep apnea/ respiratory insufficiency The patient is complaining of some congestion and mucus production. - Check chest x-ray. - Incentive spirometry. - Duo nebs and oxygen as needed. - Continue CPAP/ BiPAP at home settings. Atrial fibrillation/ Coronary artery disease/ Congestive heart failure Currently stable. - Holding Coumadin for bleeding until cleared by surgery. - Continue other baseline treatments. - Monitor on telemetry. Acute renal insufficiency/ urinary retention Possibly chronic component. Renal ultrasound unremarkable. Currently stable. Cuenca has been placed for urinary retention. - Hold diuretics and losartan. - Start Flomax. - Follow BMP and avoid nephrotoxic agents. - Continue Cuenca catheter for now. Hypokalemia Improved. - Continue to monitor and replace as needed. DVT prophylaxis: Alvaro Palmer DO Sep 02, 2017 16:45
--- NOTE | 2017-09-02 17:53 | RADRPT ---
EXAM DATE/TIME: 09/02/2017 17:19 [facility] COMPARISON: No previous studies available for comparison. INDICATIONS : Dyspnea. MEDICAL HISTORY : CABG. Pacemaker. Peripheral vascular stent. SURGICAL HISTORY : None. ENCOUNTER: Initial ACUITY: 1 day PAIN SCORE: 0/10 LOCATION: chest FINDINGS: A single view of the chest demonstrates sternotomy with pacer leads overlying right atrium and right ventricle. Cardiomegaly. Mild basilar atelectasis. CONCLUSION: 1. Postoperative CABG. There is mild basilar atelectasis. No effusion or pneumothorax. Jameson Cao MD on September 02, 2017 at 17:48 Board Certified Radiologist. This report was verified electronically.
--- NOTE | 2017-09-02 20:07 | HHI.PR ---
Subjective Subjective Notes Much more comfortable today Objective Vitals/I&O Vital Signs Date Time Temp Pulse Resp B/P (MAP) Pulse Ox O2 Delivery O2 Flow Rate FiO2 09/02/17 16:16 96.5 86 18 103/60 (74) 93 08/31/17 18:30 Nasal Cannula 2 08/29/17 11:00 21 Labs Laboratory Tests Test 09/02/17 10:17 White Blood Count 6.7 Red Blood Count 3.46 Hemoglobin 9.9 Hematocrit 30.7 Mean Corpuscular Volume 88.8 Mean Corpuscular Hemoglobin 28.8 Mean Corpuscular Hemoglobin Concent 32.4 Red Cell Distribution Width 18.6 Platelet Count 263 Mean Platelet Volume 7.9 Prothrombin Time 11.9 Prothromb Time International Ratio 1.2 Blood Urea Nitrogen 23 Creatinine 1.46 Random Glucose 114 Calcium Level 9.2 Magnesium Level 1.9 Sodium Level 139 Potassium Level 3.8 Chloride Level 101 Carbon Dioxide Level 29.4 Anion Gap 9 Estimat Glomerular Filtration Rate 47 Date/Time Source Procedure Growth Status 08/31/17 15:15 Wound Abdomen Acid Fast Stain - Final NO ACID FAST BACILLI SEEN Resulted 08/31/17 15:15 Wound Abdomen Mycobacterial Culture Pending Resulted Lungs: Clear Abdomen: Non-distended, Post-op tenderness Narrative Exam VAC in place A/P Assessment and Plan S/P I&D abdominal wall hematoma, chronic, POD #2 Will replace VAC in OR Monday 09/04 [facility] to see pt after discharge ([facility]) apparatus needed Likely discharge Tuesday 09/05 Hold anticoagulation until after discharge Alvaro Golden MD Sep 02, 2017 20:07
[2017-09-02] MEDS: PRAVASTATIN SOD 40 MG TAB PO SCH (20:13)
[2017-09-03] VITALS (7 sets, daily range): BP systolic 95–145; BP diastolic 53–70; PULSE 69–82; RESP 17–20; TEMP 95.9–98; O2SAT 94–98
[2017-09-03] MEDS: ceFAZolin 2 GM PREMIX 50 ML IV SCH (04:08)
[2017-09-03] MEDS: ACETAMINOPHEN/HYDROcodone 325 MG/10 MG TAB PO PRN ×4 (05:41→23:35)
[2017-09-03 08:39] LABS: HEMATOCRIT 29.2 % (39.0-51.0); HEMOGLOBIN 9.3 GM/DL (13.0-17.0); MEAN CELL VOLUME 88.7 FL (80.0-100.0); MEAN CORPUSCULAR HEMOGLOBIN 28.4 PG (27.0-34.0); MEAN PLATELET VOLUME 7.7 FL (7.0-11.0); PLATELET COUNT 273 TH/MM3 (150-450); RED BLOOD COUNT 3.29 MIL/MM3 (4.50-5.90); RED CELL DISTRIBUTION WIDTH 18.9 % (11.6-17.2); WHITE BLOOD COUNT 5.1 TH/MM3 (4.0-11.0)
[2017-09-03 08:54] LABS: BICARBONATE 27.5 MEQ/L (21.0-32.0); CALCIUM 9.6 MG/DL (8.5-10.1); CREATININE 1.31 MG/DL (0.60-1.30)
[2017-09-03] MEDS: TAMSULOSIN HCL 0.4 MG CAP PO SCH ×2 (08:56→19:56)
[2017-09-03] MEDS: SODIUM CHLORIDE 0.9% FLUSH 10 ML FLUSH IV FLUSH SCH ×2 (08:56→19:56)
[2017-09-03] MEDS: DOCUSATE SODIUM 50 MG/SENNA 8.6 MG TAB PO SCH ×2 (08:57→19:56)
[2017-09-03] MEDS: POTASSIUM CHLORIDE 20 MEQ CONTROLLED RELEASE TAB PO SCH ×2 (08:57→19:56)
[2017-09-03] MEDS: METOPROLOL SUCCINATE 25 MG EXTENDED RELEASE TAB PO SCH (08:58)
--- NOTE | 2017-09-03 09:29 | HHI.PR ---
Subjective Subjective Notes on cpap, no fevers, pain controlled Objective Vitals/I&O Vital Signs Date Time Temp Pulse Resp B/P (MAP) Pulse Ox O2 Delivery O2 Flow Rate FiO2 09/03/17 08:00 96.7 69 17 116/62 (80) 96 09/02/17 20:06 21 08/31/17 18:30 Nasal Cannula 2 Labs Laboratory Tests Test 09/02/17 10:17 09/03/17 07:53 White Blood Count 6.7 5.1 Red Blood Count 3.46 3.29 Hemoglobin 9.9 9.3 Hematocrit 30.7 29.2 Mean Corpuscular Volume 88.8 88.7 Mean Corpuscular Hemoglobin 28.8 28.4 Mean Corpuscular Hemoglobin Concent 32.4 32.0 Red Cell Distribution Width 18.6 18.9 Platelet Count 263 273 Mean Platelet Volume 7.9 7.7 Prothrombin Time 11.9 Prothromb Time International Ratio 1.2 Blood Urea Nitrogen 23 22 Creatinine 1.46 1.31 Random Glucose 114 97 Calcium Level 9.2 9.6 Magnesium Level 1.9 2.0 Sodium Level 139 140 Potassium Level 3.8 3.9 Chloride Level 101 104 Carbon Dioxide Level 29.4 27.5 Anion Gap 9 9 Estimat Glomerular Filtration Rate 47 54 Date/Time Source Procedure Growth Status 09/02/17 18:45 Sputum Expectorated Sputum Gram Stain - Final Resulted 09/02/17 18:45 Sputum Expectorated Sputum Sputum Culture Pending Resulted 08/31/17 15:15 Wound Abdomen Acid Fast Stain - Final NO ACID FAST BACILLI SEEN Resulted 08/31/17 15:15 Wound Abdomen Mycobacterial Culture Pending Resulted Abdomen: Other (vac good seal) A/P Assessment and Plan S/P I&D abdominal wall hematoma, chronic, POD #3, labs stable npo after midnight Will replace VAC in OR tomorrow 09/[facility] to see pt after discharge ([facility]) apparatus needed Likely discharge Tuesday 09/05 Hold anticoagulation until after discharge Colt Rodriguez MD Sep 03, 2017 09:29
--- NOTE | 2017-09-03 13:47 | HHI.PR ---
Subjective Remarks The patient was resting comfortably in bed. He had no acute complaints. He did want the Cuenca catheter out as soon as possible. He was anticipating further procedures tomorrow. Discussed with nursing. Objective Vitals Vital Signs Date Time Temp Pulse Resp B/P (MAP) Pulse Ox O2 Delivery O2 Flow Rate FiO2 09/03/17 12:00 98.0 76 17 128/70 (89) 95 09/03/17 08:00 96.7 69 17 116/62 (80) 96 09/03/17 04:00 70 09/03/17 04:00 96.5 76 18 99/53 (68) 98 09/03/17 00:00 96.0 71 18 95/54 (68) 96 09/03/17 00:00 71 09/02/17 20:06 95 21 09/02/17 20:00 96.6 61 18 105/55 (72) 93 09/02/17 20:00 80 09/02/17 16:16 96.5 86 18 103/60 (74) 93 I/O 09/02/17 09/02/17 09/02/17 09/03/17 09/03/17 09/03/17 07:00 15:00 23:00 07:00 15:00 23:00 Intake Total 240 ml 530 ml 50 ml 410 ml Output Total 1500 ml 0 ml 960 ml Balance -1260 ml 530 ml 50 ml -550 ml Intake Oral 240 ml 480 ml 360 ml IV Total 50 ml 50 ml 50 ml Output Urine Total 1500 ml 950 ml Drainage Total 0 ml 10 ml # Voids 3 # Bowel Movements 0 Result Diagram: 09/03/17 0753 09/03/17 0753 Imaging Last Impressions Chest X-Ray 09/02/17 0000 Signed Impressions: Service Date/Time: Saturday, September 02, 2017 17:19 - CONCLUSION: 1. Postoperative CABG. There is mild basilar atelectasis. No effusion or pneumothorax. Jameson Cao MD Renal Ultrasound 09/01/17 0000 Signed Impressions: Service Date/Time: Friday, September 01, 2017 19:00 - CONCLUSION: No acute abnormality demonstrated. Benign appearing cyst right upper pole. Kei Gerardo MD Objective Remarks GENERAL: Resting comfortably. HEAD: Normocephalic. NECK: Supple, trachea midline. No lymphadenopathy. EYES: No scleral icterus. No injection or drainage. CARDIOVASCULAR: Regular rate and rhythm without murmurs, gallops, or rubs. RESPIRATORY: Breath sounds equal bilaterally. No accessory muscle use. GASTROINTESTINAL: Abdomen soft, non-tender, nondistended. MUSCULOSKELETAL: No cyanosis, or edema. SKIN: Warm and dry. Wound VAC in place on lower abdominal wall. NEURO: No focal neurological deficits. PSYCH: Mood and affect appropriate. Procedures evacuation of abdominal hematoma; Wound Vac placement Medications and IVs Current Medications Medications (Trade) Dose Ordered Sig/Lan Route Start Time Stop Time Status Last Admin (NS Flush) 2 ml UNSCH PRN IV FLUSH 08/28/17 17:30 (NS Flush) 2 ml BID IV FLUSH 08/28/17 21:00 09/03/17 08:56 (Zofran Inj) 4 mg Q6H PRN IVP 08/28/17 17:30 ([place] 5-325 Mg) 1 tab Q4H PRN PO 08/28/17 17:30 ([place] 10-325 Mg) 1 tab Q4H PRN PO 08/28/17 17:30 09/03/17 10:22 (Narcan Inj) 0.4 mg UNSCH PRN IV PUSH 08/28/17 17:30 (Milk Of Magnesia Liq) 30 ml Q12H PRN PO 08/28/17 17:30 (Lasix) 40 mg BID@0900,1800 PO 08/28/17 21:00 Future Hold 09/01/17 10:42 (Synthroid) 125 mcg BID PO 08/28/17 21:00 Future Hold 08/28/17 19:54 (Toprol Xl) 25 mg DAILY PO 08/29/17 09:00 09/02/17 08:38 (KCl) 20 meq BID PO 08/28/17 21:00 09/03/17 08:57 (Cozaar) 50 mg DAILY PO 08/29/17 09:00 Future Hold 09/01/17 08:48 (Pravachol) 80 mg HS PO 08/28/17 21:00 09/02/17 20:13 (Flomax) 0.4 mg BID PO 09/01/17 21:00 09/03/17 08:56 (Ladan-Colace) 1 tab BID PO 09/02/17 15:30 09/03/17 08:57 (Miralax) 17 gm DAILY PRN PO 09/02/17 16:45 (Duoneb Neb) 1 ampule Q2HR NEB PRN NEB 09/02/17 16:45 Cefazolin Sodium 2000 mg/Sodium Chloride 100 ml @ 200 mls/hr Q8H IV 09/03/17 12:00 09/03/17 11:40 A/P Problem List: (1) Abdominal wall mass ICD Code: R22.2 - Localized swelling, mass and lump, trunk Status: Acute (2) Hypokalemia ICD Code: E87.6 - Hypokalemia Status: Acute (3) Stage III chronic kidney disease ICD Code: N18.3 - Stage III chronic kidney disease Status: Acute (4) Diabetes mellitus ICD Code: E11.9 - Diabetes mellitus Status: Acute (5) Acute respiratory failure ICD Code: J96.00 - Acute respiratory failure Status: Acute Assessment and Plan 71-year-old male admitted secondary to hypokalemia and bleeding anterior abdominal mass Bleeding anterior abdominal mass/ Anemia Likely spontaneous bleeding into seroma. S/p Coumadin reversal. General surgery consult appreciated. S/p evacuation of abdominal hematoma; Wound Vac placement. - Follow CBC. - Surgery planning on taking back to OR tomorrow. - Continue antibiotics. - pain control with a bowel regimen. Sleep apnea/ respiratory insufficiency The patient is complaining of some congestion and mucus production. Chest x-ray unremarkable. - Incentive spirometry. - Duo nebs and oxygen as needed. - Continue CPAP/ BiPAP at home settings. Atrial fibrillation/ Coronary artery disease/ Congestive heart failure Currently stable. - Holding Coumadin for bleeding until cleared by surgery. - Continue other baseline treatments. - Monitor on telemetry. Acute renal insufficiency/ urinary retention Possibly chronic component. Renal ultrasound unremarkable. Currently stable. Cuenca has been placed for urinary retention. - Hold diuretics and losartan. - continue Flomax. - Follow BMP and avoid nephrotoxic agents. - Continue Cuenca catheter for now. Voiding trial prior to discharge. Hypokalemia Improved. - Continue to monitor and replace as needed. DVT prophylaxis: Alvaro Palmer DO Sep 03, 2017 13:47
[2017-09-03] MEDS: ACETAMINOPHEN/HYDROcodone 325 MG/5 MG TAB PO PRN (18:33)
[2017-09-03] MEDS: PRAVASTATIN SOD 40 MG TAB PO SCH (19:56)
[2017-09-04] VITALS (8 sets, daily range): BP systolic 117–157; BP diastolic 56–81; PULSE 64–86; RESP 18–20; TEMP 96.1–97.6; O2SAT 95–98
[2017-09-04] MEDS ORDERED: CHLORHEXIDINE GLUCONATE 2 % 1 PACK (2 CLOTHS) TOPICAL PRN (03:30)
[2017-09-04] MEDS ORDERED: LACTATED RINGER'S 1000 ML IV PRN (03:30)
[2017-09-04] MEDS: ACETAMINOPHEN/HYDROcodone 325 MG/10 MG TAB PO PRN ×4 (04:29→22:36)
[2017-09-04 05:46] LABS: AUTOMATED NEUTROPHIL # 2.2 TH/MM3 (1.8-7.7); BASOPHIL % 0.9 % (0.0-2.0); EOSINOPHIL # 0.9 TH/MM3 (0-0.4); EOSINOPHIL % 17.8 % (0.0-4.0); HEMATOCRIT 30.1 % (39.0-51.0); HEMOGLOBIN 9.6 GM/DL (13.0-17.0); LYMPH % 27.8 % (9.0-44.0); LYMPHOCYTE # 1.3 TH/MM3 (1.0-4.8); MEAN CELL VOLUME 88.4 FL (80.0-100.0); MEAN CORPUSCULAR HEMOGLOBIN 28.1 PG (27.0-34.0); MEAN CORPUSCULAR HGB CONC 31.7 % (32.0-36.0); MEAN PLATELET VOLUME 7.8 FL (7.0-11.0); MONO % 7.9 % (0.0-8.0); MONOCYTE # 0.4 TH/MM3 (0-0.9); NEUT % 45.6 % (16.0-70.0); PLATELET COUNT 257 TH/MM3 (150-450); RED BLOOD COUNT 3.41 MIL/MM3 (4.50-5.90); RED CELL DISTRIBUTION WIDTH 18.6 % (11.6-17.2); WHITE BLOOD COUNT 4.8 TH/MM3 (4.0-11.0)
[2017-09-04] MEDS: METOPROLOL SUCCINATE 25 MG EXTENDED RELEASE TAB PO SCH (08:38)
[2017-09-04] MEDS: POTASSIUM CHLORIDE 20 MEQ CONTROLLED RELEASE TAB PO SCH ×2 (08:38→22:23)
[2017-09-04] MEDS: TAMSULOSIN HCL 0.4 MG CAP PO SCH ×2 (08:38→22:23)
[2017-09-04] MEDS: DOCUSATE SODIUM 50 MG/SENNA 8.6 MG TAB PO SCH ×2 (08:38→22:23)
[2017-09-04] MEDS: SODIUM CHLORIDE 0.9% FLUSH 10 ML FLUSH IV FLUSH SCH ×2 (08:40→22:23)
[2017-09-04] MEDS ORDERED: DEXAMETHASONE SOD PHOS 4 MG/ML VIAL IV ONE (12:00)
[2017-09-04] MEDS ORDERED: ONDANSETRON HCL 4 MG/2 ML VIAL IV PUSH ONE (12:00)
[2017-09-04] MEDS ORDERED: LIDOCAINE HCL 1% PF 5 ML SYRINGE OTHER ONE (12:00)
[2017-09-04] MEDS ORDERED: NEOSTIGMINE 5 MG/5 ML SYRINGE IV PUSH ONE (12:00)
[2017-09-04] MEDS ORDERED: PROPOFOL 200 MG/20 ML AMP IV ONE (12:00)
[2017-09-04] MEDS ORDERED: GLYCOPYRROLATE 1 MG/5 ML SYRINGE IV PUSH ONE (12:00)
[2017-09-04] MEDS ORDERED: ROCURONIUM INJ 50 MG/5 ML SYRINGE IV PUSH ONE (12:00)
--- NOTE | 2017-09-04 13:47 | HHI.PR ---
Subjective Remarks The patient was awaiting surgery at 5 PM. He had no acute complaints. He was hopeful to go home tomorrow. He would like the Cuenca catheter removed tomorrow. Discussed with nursing. Objective Vitals Vital Signs Date Time Temp Pulse Resp B/P (MAP) Pulse Ox O2 Delivery O2 Flow Rate FiO2 09/04/17 12:00 97.6 86 18 134/75 (94) 96 09/04/17 08:00 97.4 71 18 136/69 (91) 96 09/04/17 04:00 96.6 74 18 117/56 (76) 98 09/04/17 03:55 71 09/04/17 00:00 96.1 74 20 134/70 (91) 95 09/03/17 23:59 73 09/03/17 20:00 97.7 79 20 127/66 (86) 94 09/03/17 20:00 81 09/03/17 16:00 95.9 82 17 145/68 (93) 97 I/O 09/03/17 09/03/17 09/03/17 09/04/17 09/04/17 09/04/17 07:00 15:00 23:00 07:00 15:00 23:00 Intake Total 410 ml 100 ml 1180 ml 340 ml Output Total 960 ml 605 ml 510 ml Balance -550 ml 100 ml 575 ml -170 ml Intake Oral 360 ml 1080 ml 240 ml IV Total 50 ml 100 ml 100 ml 100 ml Output Urine Total 950 ml 575 ml 500 ml Drainage Total 10 ml 30 ml 10 ml # Bowel Movements 0 0 0 Result Diagram: 09/04/17 0435 09/03/17 0753 Imaging Last Impressions Chest X-Ray 09/02/17 0000 Signed Impressions: Service Date/Time: Saturday, September 02, 2017 17:19 - CONCLUSION: 1. Postoperative CABG. There is mild basilar atelectasis. No effusion or pneumothorax. Jameson Cao MD Renal Ultrasound 09/01/17 0000 Signed Impressions: Service Date/Time: Friday, September 01, 2017 19:00 - CONCLUSION: No acute abnormality demonstrated. Benign appearing cyst right upper pole. Kei Gerardo MD Objective Remarks GENERAL: Resting comfortably. HEAD: Normocephalic. NECK: Supple, trachea midline. No lymphadenopathy. EYES: No scleral icterus. No injection or drainage. CARDIOVASCULAR: Regular rate and rhythm without murmurs, gallops, or rubs. RESPIRATORY: Breath sounds equal bilaterally. No accessory muscle use. GASTROINTESTINAL: Abdomen soft, non-tender, nondistended. MUSCULOSKELETAL: No cyanosis, or edema. SKIN: Warm and dry. Wound VAC in place on lower abdominal wall. NEURO: No focal neurological deficits. PSYCH: Mood and affect appropriate. Procedures evacuation of abdominal hematoma; Wound Vac placement Medications and IVs Current Medications Medications (Trade) Dose Ordered Sig/Lan Route Start Time Stop Time Status Last Admin (NS Flush) 2 ml UNSCH PRN IV FLUSH 08/28/17 17:30 (NS Flush) 2 ml BID IV FLUSH 08/28/17 21:00 09/03/17 19:56 (Zofran Inj) 4 mg Q6H PRN IVP 08/28/17 17:30 ([place] 5-325 Mg) 1 tab Q4H PRN PO 08/28/17 17:30 09/03/17 18:33 ([place] 10-325 Mg) 1 tab Q4H PRN PO 08/28/17 17:30 09/04/17 12:51 (Narcan Inj) 0.4 mg UNSCH PRN IV PUSH 08/28/17 17:30 (Milk Of Magnesia Liq) 30 ml Q12H PRN PO 08/28/17 17:30 09/03/17 14:31 (Lasix) 40 mg BID@0900,1800 PO 08/28/17 21:00 Future Hold 09/01/17 10:42 (Synthroid) 125 mcg BID PO 08/28/17 21:00 Future Hold 08/28/17 19:54 (Toprol Xl) 25 mg DAILY PO 08/29/17 09:00 09/04/17 08:38 (KCl) 20 meq BID PO 08/28/17 21:00 09/04/17 08:38 (Cozaar) 50 mg DAILY PO 08/29/17 09:00 Future Hold 09/01/17 08:48 (Pravachol) 80 mg HS PO 08/28/17 21:00 09/03/17 19:56 (Flomax) 0.4 mg BID PO 09/01/17 21:00 09/04/17 08:38 (Ladan-Colace) 1 tab BID PO 09/02/17 15:30 09/04/17 08:38 (Miralax) 17 gm DAILY PRN PO 09/02/17 16:45 (Duoneb Neb) 1 ampule Q2HR NEB PRN NEB 09/02/17 16:45 Cefazolin Sodium 2000 mg/Sodium Chloride 100 ml @ 200 mls/hr Q8H IV 09/03/17 12:00 09/04/17 12:45 Lactated Ringer's 1,000 ml @ 30 mls/hr Q24H PRN IV 09/04/17 03:30 09/07/17 03:29 (Chlorhexidine 2% Cloth) 3 pack EMBEDDED SOFTWARE ENGINEER PRN TOPICAL 09/04/17 03:30 09/07/17 03:29 A/P Problem List: (1) Abdominal wall mass ICD Code: R22.2 - Localized swelling, mass and lump, trunk Status: Acute (2) Hypokalemia ICD Code: E87.6 - Hypokalemia Status: Acute (3) Stage III chronic kidney disease ICD Code: N18.3 - Stage III chronic kidney disease Status: Acute (4) Diabetes mellitus ICD Code: E11.9 - Diabetes mellitus Status: Acute (5) Acute respiratory failure ICD Code: J96.00 - Acute respiratory failure Status: Acute Assessment and Plan 71-year-old male admitted secondary to hypokalemia and bleeding anterior abdominal mass Bleeding anterior abdominal mass/ Anemia Likely spontaneous bleeding into seroma. S/p Coumadin reversal. General surgery consult appreciated. S/p evacuation of abdominal hematoma; Wound Vac placement. - Follow CBC. Stable. - Surgery planning on taking back to OR at 5PM. - Continue antibiotics. - pain control with a bowel regimen. Sleep apnea/ respiratory insufficiency The patient is complaining of some congestion and mucus production. Chest x-ray unremarkable. - Incentive spirometry. - Duonebs and oxygen as needed. - Continue CPAP/ BiPAP at home settings. Atrial fibrillation/ Coronary artery disease/ Congestive heart failure Currently stable. - Holding Coumadin for bleeding until cleared by surgery. - Continue other baseline treatments. - Monitor on telemetry. Acute renal insufficiency/ urinary retention Possibly chronic component. Renal ultrasound unremarkable. Currently stable. Cuenca has been placed for urinary retention. - Holding diuretics and losartan. - continue Flomax. - Follow BMP and avoid nephrotoxic agents. - Continue Cuenca catheter for now. Voiding trial prior to discharge. Hypokalemia Improved. - Continue to monitor and replace as needed. DVT prophylaxis: SCDs Discharge Planning Anticipate d/c 09/04 with [facility]. May need to be d/c with cath if voiding trial unsuccessful. Alvaro Appiah DO Sep 04, 2017 13:47
[2017-09-04] MEDS ORDERED: LIDOCAINE HCL 0.5% PF 50 ML VIAL ONE (18:45)
[2017-09-04] MEDS ORDERED: BUPIVACAINE/EPINEPHRINE 0.5% PF 30 ML VIAL ONE (19:08)
[2017-09-04] MEDS ORDERED: SUGAMMADEX SODIUM 200 MG/2 ML VIAL IV PUSH ONE (20:11)
--- NOTE | 2017-09-04 20:18 | HHI.PR ---
cc: Alvaro Golden MD Immediate Post Op Note Procedure Date: Sep 04, 2017 Pre Op Diagnosis: Hematoma abdominal wall Post Op Diagnosis: Same Surgeon: Alvaro Golden Paperhanger Pipe(s): Satish Waller CSA Procedure: Irrigation and debridement <25cm2 subcutaneous tissue abdominal wall Replacement VAC dressing Complications: None Specimen(s) removed: None Estimated blood loss: 5 ml Anesthesia: General Drains: None IVF (300 ml) Patient to: PACU Patient Condition: Good Date/Time of Procedure: SEE SURGICAL CARE RECORD Alvaro Golden MD Sep 04, 2017 20:18
[2017-09-04] MEDS ORDERED: *morphine SULFATE 4 MG/ML PERIprocedure ONLY ONE (20:36)
[2017-09-04] MEDS ORDERED: DO NOT ADM ANY ANTICOAGULANT DRUGS PRN (20:45)
[2017-09-04] MEDS: PRAVASTATIN SOD 40 MG TAB PO SCH (22:23)
[2017-09-05] VITALS (7 sets, daily range): BP systolic 100–128; BP diastolic 52–65; PULSE 72–87; RESP 17–20; TEMP 95.7–98.1; O2SAT 95–97
[2017-09-05] MEDS: ACETAMINOPHEN/HYDROcodone 325 MG/10 MG TAB PO PRN ×2 (03:14→19:20)
[2017-09-05 06:15] LABS: HEMATOCRIT 31.6 % (39.0-51.0); HEMOGLOBIN 10.2 GM/DL (13.0-17.0); MEAN CELL VOLUME 88.3 FL (80.0-100.0); MEAN CORPUSCULAR HEMOGLOBIN 28.5 PG (27.0-34.0); MEAN CORPUSCULAR HGB CONC 32.3 % (32.0-36.0); MEAN PLATELET VOLUME 7.6 FL (7.0-11.0); PLATELET COUNT 287 TH/MM3 (150-450); RED BLOOD COUNT 3.57 MIL/MM3 (4.50-5.90); RED CELL DISTRIBUTION WIDTH 18.4 % (11.6-17.2); WHITE BLOOD COUNT 4.6 TH/MM3 (4.0-11.0)
[2017-09-05 06:36] LABS: BICARBONATE 25.7 MEQ/L (21.0-32.0); CALCIUM 9.9 MG/DL (8.5-10.1); CREATININE 1.25 MG/DL (0.60-1.30); MAGNESIUM 2.1 MG/DL (1.5-2.5)
--- NOTE | 2017-09-05 08:45 | EKG ---
Date Performed: 09/04/2017 Time Performed: 20:47:49 PTAGE: 71 years EKG: ELECTRONIC VENTRICULAR PACEMAKER ABNORMAL RHYTHM ECG PREVIOUS TRACING : 12/14/2016 12.46 No significant change from previous tracing noted. DOCTOR: Serjio Lemos Interpretating Date/Time 09/05/2017 08:32:40
[2017-09-05] MEDS: POTASSIUM CHLORIDE 20 MEQ CONTROLLED RELEASE TAB PO SCH ×2 (09:00→19:24)
[2017-09-05] MEDS: AMOXICILLIN/CLAVULANATE K 875 MG TAB PO SCH ×2 (09:04→19:19)
[2017-09-05] MEDS: METOPROLOL SUCCINATE 25 MG EXTENDED RELEASE TAB PO SCH (09:04)
[2017-09-05] MEDS: TAMSULOSIN HCL 0.4 MG CAP PO SCH ×2 (09:04→19:19)
[2017-09-05] MEDS: DOCUSATE SODIUM 50 MG/SENNA 8.6 MG TAB PO SCH ×2 (09:04→19:20)
[2017-09-05] MEDS: SODIUM CHLORIDE 0.9% FLUSH 10 ML FLUSH IV FLUSH SCH ×2 (09:05→19:22)
[2017-09-05] MEDS: ACETAMINOPHEN/HYDROcodone 325 MG/5 MG TAB PO PRN ×2 (09:11→13:09)
--- NOTE | 2017-09-05 09:48 | MP ---
cc: Alvaro Golden MD DATE OF OPERATION: 09/04/2017 PROCEDURE PERFORMED: Irrigation and debridement of abdominal wall wound subcutaneous tissue < 25 cm2 PREOPERATIVE DIAGNOSIS: Abdominal wall hematoma. POSTOPERATIVE DIAGNOSIS: Abdominal wall hematoma. ANESTHESIA: General endotracheal. SURGEON: Alvaro Golden MD ESTIMATED BLOOD LOSS: 5 mL FLUIDS: 300 mL of crystalloid. COMPLICATIONS: None. DRAINS: None. SPECIMENS: None. FINDINGS: It is irrigation and debridement less than 25 square of subcutaneous tissue. PROCEDURE IN DETAIL: The patient was taken to the operating room and placed on the operating table in the supine position. After an adequate level of general endotracheal anesthesia was achieved, the abdomen was prepped and draped in usual fashion. Timeout was taken, confirming the correct patient, site and procedure to be performed. VAC dressing was removed and the abdomen was prepped with Betadine. The wound was then irrigated with pulse lavage saline followed by use of peroxide and scrubbing of the wound to remove adherent tissue. When this had been completed, the wound was reinspected and irrigated once again. The wound was partially closed with 2-0 and 0 Prolene suture. A smaller sponge was then replaced and when that was completely placed, the dressing was applied over this and suction applied. A good seal was obtained and, at this point, the patient was then extubated and taken back to the recovery room in stable condition. Sponge and needle counts were reported to be correct. The patient tolerated the procedure well. MD DELILAH Alvarez/ISABEL , 08:22 PM , 12:56 AM [facility]
[2017-09-05] MEDS ORDERED: SODIUM POLYSTYRENE SULFONATE SUSP 15 GM/60 ML CUP PO ONE (10:00)
--- NOTE | 2017-09-05 10:11 | HHI.PR ---
Subjective Remarks Follow up anemia, wound, a-fib. Patient reports pain today, but no other complaints at this time. Denies chest pain, dyspnea. Wants to go home today. Objective Vitals Vital Signs Date Time Temp Pulse Resp B/P (MAP) Pulse Ox O2 Delivery O2 Flow Rate FiO2 09/05/17 08:00 97.8 73 17 116/52 (73) 95 09/05/17 04:00 96.8 72 19 122/65 (84) 97 09/05/17 03:53 83 09/05/17 00:00 95.7 87 19 128/65 (86) 97 09/04/17 23:58 66 09/04/17 22:00 96.4 64 19 121/77 (92) 97 09/04/17 21:55 97 Nasal Cannula 3.00 09/04/17 21:30 98.1 91 16 127/67 (87) 97 Nasal Cannula 3 09/04/17 21:15 88 16 135/64 (87) 97 Nasal Cannula 3 09/04/17 21:00 92 23 131/62 (85) 97 Nasal Cannula 3 09/04/17 20:45 98 19 151/66 (94) 97 Nasal Cannula 4 09/04/17 20:30 109 25 133/79 (97) 96 Nasal Cannula 4 09/04/17 20:20 98.4 102 23 147/78 (101) 95 Nasal Cannula 4 09/04/17 16:00 96.7 73 18 157/81 (106) 97 09/04/17 12:00 97.6 86 18 134/75 (94) 96 I/O 09/04/17 09/04/17 09/04/17 09/05/17 09/05/17 09/05/17 07:00 15:00 23:00 07:00 15:00 23:00 Intake Total 340 ml 400 ml 340 ml 120 ml Output Total 510 ml 555 ml 650 ml Balance -170 ml -155 ml -310 ml 120 ml Intake Oral 240 ml 240 ml 120 ml IV Total 100 ml 100 ml 100 ml Other 300 ml Output Urine Total 500 ml 550 ml 650 ml Drainage Total 10 ml 0 ml Estimated Blood Loss 5 ml # Bowel Movements 0 Result Diagram: 09/05/17 0433 09/05/17 0433 Imaging Last Impressions Chest X-Ray 09/02/17 0000 Signed Impressions: Service Date/Time: Saturday, September 02, 2017 17:19 - CONCLUSION: 1. Postoperative CABG. There is mild basilar atelectasis. No effusion or pneumothorax. Jameson Cao MD Renal Ultrasound 09/01/17 0000 Signed Impressions: Service Date/Time: Friday, September 01, 2017 19:00 - CONCLUSION: No acute abnormality demonstrated. Benign appearing cyst right upper pole. Kei Gerardo MD Objective Remarks General: No acute distress. Sitting up in a chair. Heart: Regular rate and rhythm. No murmur. Lungs: Clear to auscultation bilaterally. No wheezes, rales, or rhonchi. Breathing is nonlabored. Abdomen: Soft, nondistended. Wound vac in place. Extremities: No lower extremity edema. Psych: Alert and oriented. Procedures evacuation of abdominal hematoma; Wound Vac placement Urinary Catheter: Yes Assessment to: Remove Vascular Central Line Catheter: No A/P Problem List: (1) Abdominal wall mass ICD Code: R22.2 - Localized swelling, mass and lump, trunk Status: Acute (2) Hypokalemia ICD Code: E87.6 - Hypokalemia Status: Acute (3) Stage III chronic kidney disease ICD Code: N18.3 - Stage III chronic kidney disease Status: Acute (4) Diabetes mellitus ICD Code: E11.9 - Diabetes mellitus Status: Acute (5) Acute respiratory failure ICD Code: J96.00 - Acute respiratory failure Status: Acute Assessment and Plan 1. Bleeding anterior abdominal mass: Appreciate general surgery recommendations. Wound VAC in place. Status post evacuation of abdominal hematoma. H&H are stable. Continue pain control, bowel regimen. 2. Sleep apnea, respiratory insufficiency: CPAP with home settings. Continue supplemental oxygen as needed. Duo nebs as needed. Incentive spirometry. 3. Atrial fibrillation: Coumadin on hold secondary to bleeding, anemia. 4. Coronary artery disease, congestive heart failure: Monitor on telemetry. Currently asymptomatic. Diuretics are on hold. 5. Acute renal insufficiency, urinary retention: We will attempt to remove Cuenca today. May need Cuenca catheter at discharge. Continue Flomax. Diuretics on hold. 6. Hyperkalemia: Patient presented with significant hypokalemia. Recheck labs this afternoon. Potassium supplementation held this morning. 7. DVT prophylaxis: SCDs. Discharge Planning Possible discharge today, rehab versus home health care. Awaiting further PT recommendations and also awaiting general surgery clearance. Milton Guo MD Sep 05, 2017 10:11
[2017-09-05] MEDS ORDERED: AMOX875T2 PO (12:48)
[2017-09-05] MEDS ORDERED: HYDR-3583 PO (12:48)
--- NOTE | 2017-09-05 14:56 | HHI.PR ---
Subjective Subjective Notes Resting in bed No issues overnight Objective Vitals/I&O Vital Signs Date Time Temp Pulse Resp B/P (MAP) Pulse Ox O2 Delivery O2 Flow Rate FiO2 09/05/17 12:00 98.1 78 19 100/52 (68) 96 09/04/17 21:55 Nasal Cannula 3.00 09/02/17 20:06 21 Labs Laboratory Tests Test 09/05/17 04:33 White Blood Count 4.6 Red Blood Count 3.57 Hemoglobin 10.2 Hematocrit 31.6 Mean Corpuscular Volume 88.3 Mean Corpuscular Hemoglobin 28.5 Mean Corpuscular Hemoglobin Concent 32.3 Red Cell Distribution Width 18.4 Platelet Count 287 Mean Platelet Volume 7.6 Blood Urea Nitrogen 15 Creatinine 1.25 Random Glucose 125 Calcium Level 9.9 Magnesium Level 2.1 Sodium Level 139 Potassium Level 5.6 Chloride Level 106 Carbon Dioxide Level 25.7 Anion Gap 7 Estimat Glomerular Filtration Rate 57 Date/Time Source Procedure Growth Status 09/02/17 18:45 Sputum Expectorated Sputum Gram Stain - Final Complete 09/02/17 18:45 Sputum Expectorated Sputum Sputum Culture - Final Complete 08/31/17 15:15 Wound Abdomen Acid Fast Stain - Final NO ACID FAST BACILLI SEEN Resulted 08/31/17 15:15 Wound Abdomen Mycobacterial Culture Pending Resulted Cardiovascular: Regular Lungs: Clear Abdomen: Other (Abdominal wound vac in place with good seal ) Extremities: No edema A/P Assessment and Plan 71 year old male with multiple chronic medical conditions; large palpable mass -POD1 Wound Vac change in OR -Will change Wound Vac in the office on -Hyperkalemic; given Kayexalate; recheck K -Pain control -Augmentin -Okay to start Coumadin tomorrow afternoon -GS clear for DC -Augmentin and [place] rx on chart -Discussed with Dr. Guo \ Attending Note - Dr. Golden Wound is clean; minimal output in canister If repeat K+ in normal range, expect discharge this evening. The exam, history, and the medical decision-making described in the above note were completed with the assistance of the mid-level provider. I reviewed and agree with the findings presented. I attest that I had a [id number] encounter with the patient on the same day, and personally performed and documented my assessment and findings in the medical record. The exam, history, and the medical decision-making described in the above note were completed with the assistance of the mid-level provider. I reviewed and agree with the findings presented. I attest that I had a [id number] encounter with the patient on the same day, and personally performed and documented my assessment and findings in the medical record. Dina Eckert/First Nikolay HUTCHISON Sep 05, 2017 14:55 Alvaro Golden MD Sep 07, 2017 17:44
--- NOTE | 2017-09-05 16:01 | HHI.FF ---
Face to Face Verification Diagnosis: (1) Abdominal wall mass Physical Therapy Order: Evaluate and Treat, Improve ambulation, Strength and gait training Instructions: NO restrictions Home Health Nursing Order: Wound care and dressing changes Instructions: Patient with Wound Vac--- to be changed in our office Wound management of Wound Vac I have seen patient Kei Brown, JERALD on 09/05/17. My clinical findings support the need for the requested home health care services because: Limited ability to care for self High risk of falls I certify that my clinical findings support that this patient is homebound because: Post-op weakness Dina Eckert/Experimental Mechanic Electrical ATHLETIC INSTRUCTOR Sep 05, 2017 16:01
[2017-09-05] MEDS: PRAVASTATIN SOD 40 MG TAB PO SCH (19:20)
[2017-09-05 21:57] LABS: BICARBONATE 25.2 MEQ/L (21.0-32.0); CALCIUM 10.1 MG/DL (8.5-10.1); CREATININE 1.25 MG/DL (0.60-1.30)
[2017-09-06] VITALS: BP 121/62; PULSE 71; RESP 17; TEMP 97.2; O2SAT 96
[2017-09-06] MEDS: ACETAMINOPHEN/HYDROcodone 325 MG/10 MG TAB PO PRN ×2 (00:17→06:12)
[2017-09-06] MEDS ORDERED: TAMS5CAP PO (07:37)
--- NOTE | 2017-09-06 07:39 | HHI.DCPOC ---
Discharge Care Plan Diagnosis: (1) Open abdominal wall wound (2) Stage III chronic kidney disease (3) Diabetes mellitus (4) Acute respiratory failure (5) Abdominal wall mass Goals to Promote Your Health * To prevent worsening of your condition and complications * To maintain your health at the optimal level Directions to Meet Your Goals Take your medications as prescribed Follow your dietary instruction Follow activity as directed Keep your appointments as scheduled Take your immunizations and boosters as scheduled If your symptoms worsen call your PCP, if no PCP go to Urgent Care Center or Emergency Room Smoking is Dangerous to Your Health. Avoid second hand smoke Call the 24-hour hour crisis hotline for domestic abuse at Milton Guo MD Sep 06, 2017 07:39
--- NOTE | 2017-09-06 07:42 | HHI.DS ---
cc: Heidi Santos MD Discharge Summary Admission Date Aug 28, 2017 at 17:27 Discharge Date: Sep 06, 2017 Admitting Diagnosis HYPOKALEMIA, BLEEDING ABDOMINAL MASS (1) Abdominal wall mass ICD Code: R22.2 - Localized swelling, mass and lump, trunk Status: Acute (2) Hypokalemia ICD Code: E87.6 - Hypokalemia Status: Acute (3) Stage III chronic kidney disease ICD Code: N18.3 - Stage III chronic kidney disease Status: Acute (4) Diabetes mellitus ICD Code: E11.9 - Diabetes mellitus Status: Acute (5) Acute respiratory failure ICD Code: J96.00 - Acute respiratory failure Status: Acute Procedures evacuation of abdominal hematoma; Wound Vac placement Brief History - From Admission Mr. Brown is a 71-year-old male. At baseline he has atrial fibrillation and is on Coumadin for this. He has had stents in the past with stents are placed greater than 1 year ago. In 2010 he had a hernia surgery and had an associated seroma. He says in the past 6 months he has had a gradual increase in the size of his anterior abdominal seroma. Recently this has started using blood. He says in the past 24 hours he has had clots coming out and that he had a squirting of blood happening at the site. Moderate anemia is present. There is tenderness infection may also be present. He stopped his Coumadin 2 days ago. Coumadin level is still elevated at 2.7. No other complaints. No complaints of fever. Of note he does have a history of 3 cardiac arrests with anesthesia for gallbladder surgery 1970s, thyroid surgery in , and ablation more recently. His potassium level is 2.7, replacements have been initiated in the ER. No other complaints from this patient. CBC/BMP: 09/05/17 0433 09/05/17 1730 Significant Findings Laboratory Tests Test 09/03/17 07:53 09/04/17 04:35 09/05/17 04:33 09/05/17 17:30 Red Blood Count 3.29 MIL/MM3 (4.50-5.90) 3.41 MIL/MM3 (4.50-5.90) 3.57 MIL/MM3 (4.50-5.90) Hemoglobin 9.3 GM/DL (13.0-17.0) 9.6 GM/DL (13.0-17.0) 10.2 GM/DL (13.0-17.0) Hematocrit 29.2 % (39.0-51.0) 30.1 % (39.0-51.0) 31.6 % (39.0-51.0) Red Cell Distribution Width 18.9 % (11.6-17.2) 18.6 % (11.6-17.2) 18.4 % (11.6-17.2) Blood Urea Nitrogen 22 MG/DL (7-18) Creatinine 1.31 MG/DL (0.60-1.30) Estimat Glomerular Filtration Rate 54 ML/MIN (>89) 57 ML/MIN (>89) 57 ML/MIN (>89) Mean Corpuscular Hemoglobin Concent 31.7 % (32.0-36.0) Eosinophils (%) (Auto) 17.8 % (0.0-4.0) Eosinophils # (Auto) 0.9 TH/MM3 (0-0.4) Random Glucose 125 MG/DL (74-106) 108 MG/DL (74-106) Potassium Level 5.6 MEQ/L (3.5-5.1) Imaging Last Impressions Chest X-Ray 09/02/17 0000 Signed Impressions: Service Date/Time: Saturday, September 02, 2017 17:19 - CONCLUSION: 1. Postoperative CABG. There is mild basilar atelectasis. No effusion or pneumothorax. Jameson Cao MD Renal Ultrasound 09/01/17 0000 Signed Impressions: Service Date/Time: Friday, September 01, 2017 19:00 - CONCLUSION: No acute abnormality demonstrated. Benign appearing cyst right upper pole. Kei Gerardo MD PE at Discharge General: No acute distress. Sitting up in a chair. Heart: Regular rate and rhythm. No murmur. Lungs: Clear to auscultation bilaterally. No wheezes, rales, or rhonchi. Breathing is nonlabored. Abdomen: Soft, nondistended. Wound vac in place. Extremities: No lower extremity edema. Psych: Alert and oriented. Pt update on day of discharge Patient seen sitting in a wheelchair at the nurses station. States that he feels better today. Was very frustrated that he did not go home last night. No chest pain or dyspnea. Still feels weak, but feels that he can get around with a walker. Hospital Course The patient was admitted for management of hypokalemia, anterior abdominal mass. Coumadin was held. General surgery and cardiology were consulted. Irrigation and debridement of the anterior abdominal wall hematoma was done on . Wound VAC was placed. Patient developed urinary retention. Cuenca catheter was placed. He was started on Flomax. H&H remained stable. Wound VAC was exchanged. He was cleared for discharge by general surgery. Arrangements were made by case management for the patient to have home health care and a wound VAC at home. Cuenca catheter was removed and patient was able to urinate. Potassium increased. Supplementation was held and the labs were rechecked. Serum potassium level improved and patient was felt to be stable for discharge home with home health care. Pt Condition on Discharge: Stable Discharge Disposition: Disch w/ Home Health Serv Discharge Time: > 30 minutes Discharge Instructions DIET: Follow Instructions for: As Tolerated, No Restrictions Activities you can perform: Regular-No Restrictions Follow up Referrals: PCP Follow-up - 1 Week Surgical - 09/07/17 with Alvaro Golden MD Appt set for September 07 at 8:30AM New Medications: Amoxicillin-Clavulanate (Amoxicillin-Clavulanate) 875-125 mg Tab 875 MG PO Q12H for Infection for 7 Days, TAB not for use in CrCl <30 mL/minute Hydrocodone/Acetaminophen (Hydrocodone-Acetamin 10-325 mg) 10 Mg-325 Mg Tablet 1 TAB PO Q4H PRN for pain, #25 TAB Tamsulosin (Flomax) 0.4 Mg Cap 0.4 MG PO BID for Urinary retention, #30 CAP 0 Refills Continued Medications: Furosemide (Furosemide) 40 Mg Tab 40 MG PO BID, TAB 0 Refills Hydrocodone-Acetaminophen (Hydrocodone-Acetaminophen) 5-325 mg Tab 1 TAB PO Q6H PRN for PAIN, TAB 0 Refills Irbesartan (Avapro) 150 Mg Tab 150 MG PO DAILY for Blood Pressure Management, TAB 0 Refills Levothyroxine (Levothyroxine) 125 Mcg Tab 125 MCG PO BID for Thyroid, TAB 0 Refills Metoprolol Succinate ER 24 HR (Metoprolol Succinate ER 24 HR) 25 Mg Tab 25 MG PO DAILY, TAB 0 Refills Potassium Chloride ER (Potassium Chloride ER) 20 Meq Tab 20 MEQ PO BID for Electrolyte Replacement, TAB 0 Refills Simvastatin (Zocor) 40 Mg Tab 40 MG PO HS for Cholesterol Management, TAB 0 Refills Warfarin (Warfarin) 6 Mg Tab 6 MG PO DAILY for Blood Clot Prevention, TAB 0 Refills Discontinued Medications: Cephalexin (Keflex) 500 Mg Cap 500 MG PO Q6H for Infection for 7 Days, #28 CAP 0 Refills Levofloxacin (Levaquin) 250 Mg Tablet 250 MG PO DAILY for INFECTION PREVENTION for 5 Days, TAB 0 Refills Oxycodone (Oxycodone) 30 Mg Tab 30 MG PO DAILY PRN for PAIN SCALE 5 TO 10, TAB 0 Refills Milton Guo MD Sep 06, 2017 07:41
[2017-09-06] MEDS: METOPROLOL SUCCINATE 25 MG EXTENDED RELEASE TAB PO SCH (08:32)
[2017-09-06] MEDS: AMOXICILLIN/CLAVULANATE K 875 MG TAB PO SCH (08:32)
[2017-09-06] MEDS: POTASSIUM CHLORIDE 20 MEQ CONTROLLED RELEASE TAB PO SCH (08:33)
[2017-09-06] MEDS: DOCUSATE SODIUM 50 MG/SENNA 8.6 MG TAB PO SCH (08:33)
[2017-09-06] MEDS: TAMSULOSIN HCL 0.4 MG CAP PO SCH (08:34)
[2017-09-06] MEDS: SODIUM CHLORIDE 0.9% FLUSH 10 ML FLUSH IV FLUSH SCH (08:35)
== END 2017-09-06 10:16 | disposition home health service (06) | DRG 464 ==
LOC: PHED 14:26 → PHEDA 17:12 → OBSVTOIN 17:27 → PH3A 18:22 → HSDI 08-31 11:28 → HPAC 08-31 15:53 → N07B 08-31 20:00
PROVIDERS: ADMIT Family Medicine; ATTEND Family Medicine
PROC: 0JC80ZZ Extirpation of Matter from Abdomen Subcutaneous Tissue and Fascia, Open Approach (ICD-10-PCS; 2017-08-31)
PROC: 0JB80ZZ Excision of Abdomen Subcutaneous Tissue and Fascia, Open Approach (ICD-10-PCS; principal; 2017-08-31 14:37)
PROC: 0JD80ZZ Extraction of Abdomen Subcutaneous Tissue and Fascia, Open Approach (ICD-10-PCS; 2017-09-04)
DX: M79.81 Nontraumatic hematoma of soft tissue (principal); D68.32 Hemorrhagic disorder due to extrinsic circulating anticoagulants; I13.0 Hypertensive heart and chronic kidney disease with heart failure and stage 1 through stage 4 chronic kidney disease, or unspecified chronic kidney disease; E11.22 Type 2 diabetes mellitus with diabetic chronic kidney disease; I50.9 Heart failure, unspecified; N18.3 Chronic kidney disease, stage 3 (moderate); Z68.42 Body mass index [BMI] 45.0-49.9, adult; K74.60 Unspecified cirrhosis of liver; I48.2 Chronic atrial fibrillation; E87.5 Hyperkalemia; G60.0 Hereditary motor and sensory neuropathy; R58 Hemorrhage, not elsewhere classified; T45.515A Adverse effect of anticoagulants, initial encounter; E87.6 Hypokalemia; D63.1 Anemia in chronic kidney disease; N28.1 Cyst of kidney, acquired; E78.5 Hyperlipidemia, unspecified; G47.30 Sleep apnea, unspecified; H35.30 Unspecified macular degeneration; I25.2 Old myocardial infarction; I25.10 Atherosclerotic heart disease of native coronary artery without angina pectoris; K21.9 Gastro-esophageal reflux disease without esophagitis; R22.2 Localized swelling, mass and lump, trunk; J45.909 Unspecified asthma, uncomplicated; R63.4 Abnormal weight loss; E66.9 Obesity, unspecified; E89.0 Postprocedural hypothyroidism; I25.5 Ischemic cardiomyopathy; R33.9 Retention of urine, unspecified; M19.90 Unspecified osteoarthritis, unspecified site; Z79.01 Long term (current) use of anticoagulants; Z85.850 Personal history of malignant neoplasm of thyroid; Z85.828 Personal history of other malignant neoplasm of skin; Z88.5 Allergy status to narcotic agent; Z91.041 Radiographic dye allergy status; Z92.3 Personal history of irradiation; Z95.0 Presence of cardiac pacemaker; Z95.1 Presence of aortocoronary bypass graft; Z95.5 Presence of coronary angioplasty implant and graft
CPT/HCPCS: 71045; 76775; 80048; 80053; 81001; 82948; 83735; 84132; 85025; 85027; 85610; 85730; 86403; 87015; 87070; 87102; 87116; 87205; 87206; 93005; 94664; 99285; J0690; J1100; J2270; J2405; J2710; J3010; J3430; J3480; J7030; J7120